=== PATIENT | male | born 1985 | race Caucasian/White ===

== ENCOUNTER 2020-11-04 01:34 | Observation (INO) | payer SELFPAY ==
[2020-11-04] VITALS (7 sets, daily range): BP systolic 120–133; BP diastolic 76–81; PULSE 55–83; RESP 16–18; TEMP 36.4–37.1; O2SAT 94–99; BMI 34.4; BMI 38.9
--- NOTE | 2020-11-04 01:44 | RAD_ITS ---
STUDY: X-RAY CHEST REASON FOR EXAM: Male, 35 years old. chest pain TECHNIQUE: Single AP portable view of the chest. COMPARISON: 04/14/2011. FINDINGS: The lungs are clear and expanded. There is no demonstrated pleural abnormality. Normal size heart. Normal mediastinum and chantell. Normal visualized pulmonary arteries. Normal visualized aortic arch and descending thoracic aorta. Normal visualized thoracic spine. Normal visualized ribs, clavicles, and shoulders. There is no demonstrated abnormality of the visualized soft tissue structures of the upper abdomen. RAD/Chest 1 View (Portable) IMPRESSION: Normal x-ray examination of the chest. Electronically Signed: Sarah Rhodes MD at 2:17 EDT , Service support ,
--- NOTE | 2020-11-04 01:44 | EKG12_ITS ---
Test Reason : ABD PAIN Blood Pressure : / mmHG Vent. Rate : 075 BPM Atrial Rate : 075 BPM P-R Int : 156 ms QRS Dur : 086 ms QT Int : 376 ms P-R-T Axes : 075 -18 053 degrees QTc Int : 419 ms Normal sinus rhythm with sinus arrhythmia Possible Inferior infarct , age undetermined Abnormal ECG Confirmed by REMBERTO SAVAGE, ROSY ([id number]), news copy editor ROMEO HORNE ([id number]) on 11/08/2020 2:09:15 PM Referred By: GORDON Confirmed By:ROSY SR MD
--- NOTE | 2020-11-04 01:46 | ED.DCSUM_ITS ---
History of Present Illness Chief Complaint: Abd Pain Detail of Chief Complaint: Upper quadrant abdominal pain and exertional chest pain Informant: Patient, Significant Other Onset: Weeks Context: Sudden Onset Timing: Intermittent Quality: Abdominal pain and chest tightness Location: Right upper quadrant and midsternal Current Severity: - - Presently not experiencing chest discomfort with respect to the right upper quadrant pain Maximum Severity: Severe - The abdominal pain is worse with greasy or fried food. There is a family history of cholelithiasis. Chest discomfort with running up and down steps Worsened by: [place] food regarding RUQ and exertion with respect to chest tightness Relieved by: Nothing and rest Associated Symptoms: Please read HPI Narrative: Patient is a 35-year-old male who smokes 1.5 packs of cigarettes a day. He has not seen a doctor in many years. There is family history cholelithiasis. He denies known family history of cardiac disease. He has been experiencing right upper quadrant pain that radiates to his back and midsternal chest discomfort that radiates to his back with associated symptoms for 1 to 2 months. Patient presents because of right upper quadrant discomfort. He states he also has fatigue. He does not feel well rested. Person that is with him states he snores loudly. He states he does not feel he has gotten a sounds night of sleep upon awakening. He does report significant weight gain. He reports the right upper quadrant pain is precipitated by greasy or fried meals. He had a turkey sandwich with Doritos at 1999. The right upper quadrant pain is been present for about 2 months. The pain does radiate to his back. He denies primary. He states he has had diarrhea the past 1 to 2 days. He denies blood or mucus in his diarrhea. He denies black or maroon-colored stool. He denies history of peptic ulcers, hiatal hernia or reflux. Patient reports midsternal chest tightness radiates to his back associated with dyspnea and diaphoresis if he goes up and down the steps quickly. Discomfort lasted approximately 20 minutes. The discomfort does go away if he stops activity. He has never had a stress test. His only known risk factor is smo dustin since he has not seen a doctor in years. Prior similar symptoms: No Recent Illness/Hospitalization: No - Past Medical History (1) Past medical history not known due to adoption Status: Acute Past Medical History - Allergies and Home Meds Allergies/Adverse Reactions: Allergies No Known Allergies Allergy (Verified 11/04/20 01:40) Primary Care Physician: NOT,DEFINED [NON-STAFF] - Past Medical History: None Surgical History: no surgical history Lives: Spouse/ Significant Other Smoking Status: Current every day smoker Alcohol: Rare Drugs: None Review of Systems General: Reports: Malaise. Denies: Chills, Fever, Subjective, Sweats Eyes: Denies: Visual changes - bilaterally, Blurred Vision - bilaterally ENT: Denies: Bilateral ear pain, Rhinorrhea, Sore throat Cardiovascular: Reports: Chest pain. Denies: Palpitations, Heart racing Respiratory: Reports: Cough - Smokers, Dyspnea on exertion. Denies: Dyspnea, Sputum, Orthopnea, Paroxysmal nocturnal dyspnea Gastrointestinal: Reports: Abdominal pain, Nausea. Denies: Vomiting, Diarrhea, Hematochezia Genitourinary: Denies: Dysuria, Hematuria, Frequency Musculoskeletal: Reports: Back pain. Denies: Myalgias, Arthralgias, Neck pain, Swelling, Extremity Pain Skin: Denies: Rash, Wounds Neurological: Denies: Weakness, Parasthesia Endocrine: Reports: Polyuria - Also complains of nocturia. Hematologic: Denies: Easy bruising, Easy bleeding Allergy: Denies: Uticaria Physical Exam Vital Signs/Narrative: Vital Signs Temp Pulse Resp BP Pulse Ox 11/04/20 01:35 97.5 F L 83 18 133/76 H 96 Inital Vital Signs reviewed: Yes General: Well nourished, Well developed, Obese, No Acute Distress Head: Normocephalic, Atraumatic Eyes: Perrl, EOMI. Negative for: Pale conjunctiva ENT: Moist mucous membranes, No rhinorrhea Neck: Supple, Nontender, No lymphadenopathy, No JVD Cardiovascular: Regular rate, Regular rhythm, No murmurs, Normal S1, Normal S2 Respiratory: No distress, CTA bilaterally, Chest nontender Abdomen: Soft, Nondistended, No masses, Tender, Hypoactive bowel sounds, Pittman's sign - Cervical Pittman sign.. Negative for: Nontender, Normal bowel sounds, Rebound tenderness, Hepatomegaly, Splenomegaly Rectal: Deferred Back: Nontender, Normal Inspection. Negative for: CVA tenderness Extremities: Nontender, No edema Skin: Normal color, No rash, Diaphoresis, No Trauma. Negative for: Cyanosis, Jaundice Neurological: Alert, Oriented x3, Cranial nerves II-XII grossly intact, Normal Strength, Normal Sensation Psychological: Normal affect, Normal Mood Diagnostic/Tx/Re-eval Chest X-Ray - ED: 1 View, Read by ED Physician, Normal, Heart, Lungs, Mediastinum, Bony Structures, No Acute Disease, - - Single view portable chest x-ray was interpreted by me at 0200. 11/04/20 01:44 Chest 1 View (Portable) [RAD] Stat 11/04/20 01:44 Chest 1 View (Portable) [RAD] Stat Laboratory Results 11/04/20 11/04/20 01:40 01:40 WBC 11.2 H RBC 6.25 H Hgb 18.9 H* Hct 55.1 H MCV 88.2 MCH 30.2 MCHC 34.3 RDW Std Deviation 41.8 RDW Coeff of Abdelrahman 12.9 Plt Count 248 MPV 10.3 Immature Gran % (Auto) 0.400 Neut % (Auto) 53.3 Lymph % (Auto) 34.6 [place] % (Auto) 8.7 Eos % (Auto) 2.4 Baso % (Auto) 0.6 Absolute Neuts (auto) 6.0 Absolute Lymphs (auto) 3.88 Nucleated RBC % 0 Diff Path Review May foll Sodium 135 L Potassium 3.6 Chloride 103 Carbon Dioxide 30.0 Anion Gap 2 L BUN 15 Creatinine 1.32 H Estim Creat Clear Calc 79.11 Est GFR (MDRD) Af Amer 78 Est GFR (MDRD) Non-Af 65 BUN/Creatinine Ratio 11.4 Glucose 82 Calcium 9.1 Total Bilirubin 0.80 Direct Bilirubin 0.20 AST 20 ALT 56 Alkaline Phosphatase 64 Troponin I < 0.015 Total Protein 8.4 H Albumin 4.7 Globulin 3.7 Lipase 130 Patient has polycythemia vera secondary due to smoking. Troponin is normal. Creatinine is elevated 1.32 with a GFR of 65. Will contact hospitalist and cardiology since patient chest discomfort is very suspicious for exertional angina. Based on dynamic criteria cardiac catheterization is warranted. - EKG Initial EKG Interpretation: Sinus Rhythm - Normal sinus rhythm with respiratory variance. Ventricular rate 75. Parables on 56 ms. Cures duration 86 ms. QT duration 376 ms. [place] is normal. There is motion artifact. Multiple attempts were made in this is best tracing. There are no Q-wave in the inferior leads. Prior: No Prior - Medical Decision Making 1. With patient giving history of classic exertional angina cardiac work-up was initiated and he was treated with aspirin. Since he is presently without discomfort nitroglycerin was not ordered. Per josselyn criteria patient has classic angina and has a high likelihood of cardiac disease. Patient was scored 2 points for high suspicion and 1 point for risk factors. He scored no points for age. EKG and troponin are pending. Heart score is 3. With family history cholelithiasis and right upper quadrant pain with fatty/greasy meals hepatic and lipase was ordered. Since patient ate at 2000 and is not febrile and has no findings to suggest Charcot's triad, ascending cholangitis a stat ultrasound was not ordered. This can be done as an inpatient. Suspect patient has undiagnosed obstructive sleep apnea. Work-up as outpatient. Hematology called with a high hemoglobin. This would represent polycythemia vera secondary. - Critical Care Time Critical care time (excluding procedures): Discussing w/Patient &/or Family/Care Coordination Manager, Discussing w/Consultants, Arranging Admission or Transfer - Clear time for history, physical examination and documentation. Total time 24 minutes. ED Disposition - Plan for ED Patient: Disposition: Acute Care Hospital [facility] Diagnosis: Exertional chest pain, Right upper quadrant abdominal pain, Polycythemia vera, acquired, High blood pressure, Elevated serum creatinine Referrals: NOT,DEFINED [NON-STAFF] -
--- NOTE | 2020-11-04 01:46 | ED.RN ---
NO OLD EKGS IN MUSE
[2020-11-04 01:56] LABS: Absolute Lymphocyte Count 3.88 X10^3/uL (0.83-4.51); Basophil# 0.07 X10^3/uL; Basophil% 0.6 % (0-1); Eosinophil# 0.27 X10^3/uL; Eosinophils% 2.4 % (0-5); Hematocrit 55.1 % (40-54); Lymphocyte # 3.88 X10^3/ul (4.0); Lymphocyte % 34.6 % (19-41); Mean Corp Hgb Conc 34.3 g/dL (32-36); Mean Corpuscular Hgb 30.2 pg (27.0-32.0); Mean Corpuscular Volume 88.2 fL (80-94); Mean Platelet Vol. 10.3 fl (6.2-12.0); Monocyte# 0.97 X10^3/uL; Monocyte% 8.7 % (0-10); NRBC Flagged by Analyzer 0 % (0-5); Neutrophil # 5.98 X10^3/uL (2.7-7.7); Neutrophil % 53.3 % (47-70); Platelet Count 248 K/mm3 (150-450); RBC Distribution Width CV 12.9 % (11.6-14.6); RBC Distribution Width SD 41.8 fl (35.1-43.9); Red Blood Count 6.25 M/mm3 (4.6-6.2); White Blood Count 11.2 K/mm3 (4.4-11.0)
[2020-11-04] MEDS: Aspirin 81 MG TAB.CHEW 324 MG PO (02:00)
[2020-11-04 02:06] LABS: Hemoglobin 18.9 g/dL (13.0-16.5)
[2020-11-04 02:07] LABS: Differential Indicated SCAN CRITERIA MET
[2020-11-04 02:11] LABS: AST(SGOT) 20 U/L (15-37); Alanine Aminotransfer ALT/SGPT 56 U/L (16-61); Albumin, Serum 4.7 g/dL (3.2-5.0); Alkaline Phosphatase 64 U/L (45-117); Anion Gap 2 (5-15); BUN 15 mg/dL (7-18); BUN/Creat Ratio 11.4 RATIO (10-20); Calcium,Total 9.1 mg/dL (8.5-10.1); Chloride 103 mmol/L (98-107); Creatinine, Serum 1.32 mg/dL (0.70-1.30); EST Glomerular Filtration Rate 65 mL/min (>60); Est Glom Filt Rate - Afr Amer 78 mL/min (>60); Estimated Creatinine Clearance 79.11 ml/min; Globulin 3.7 g/dL (2.2-4.2); Glucose 82 mg/dL (74-106); Lipase 130 U/L (73-393); Potassium 3.6 mmol/L (3.5-5.1); Protein, Total 8.4 g/dL (6.4-8.2); Sodium Level 135 mmol/L (136-145)
--- NOTE | 2020-11-04 02:53 | HP.PCM_ITS ---
Problem List (1) Dehydration Status: Acute (2) Chest pain Status: Acute (3) Biliary colic Status: Suspected (4) Right upper quadrant abdominal pain Status: Acute History of Present Illness Date of Admission: 11/04/20 Chief Complaint: Right upper quadrant abdominal pain, chest pain. The patient is a 35 year old M with no significant past medical history presented to the emergency room because of right upper quadrant abdominal pain and also complains of chest pain. Patient mentioned that he has been having episodes of right upper quadrant abdominal pain over the last 2 months, intermittent, squeezing type pain, 6/10 in severity, aggravated by movement and greasy food and without relieving factors. He mentioned that this pain has been going on for at least 2 months but he did not seek medical attention. He denied nausea or vomiting. He denied fever or chills. Also, he complained of left- sided chest pain, described as chest discomfort, on and off, mainly exertional, associated with mild shortness of breath and also has been going on for several weeks. What made him come in this morning was mainly in the right upper quadrant abdominal pain. He had no past medical history. No family history of premature CAD. Patient is a smoker, smokes cigarettes and sometimes smoke weed. He denied alcohol drinking. In the emergency department, his vital signs were stable. His routine blood work was remarkable for mild leukocytosis, hemoconcentration with hemoglobin of 18.9 g/dL. Creatinine is 1.32. LFT and lipase were normal. EKG revealed normal sinus rhythm without evidence of acute ischemic changes. Troponin was negative. Chest x-ray showed no acute findings. He is being admitted for right upper quadrant abdominal pain probably due to biliary colic and also admitted for exertional chest pain for evaluation. Past Medical History Allergies No Known Allergies Allergy (Verified 11/04/20 01:40) Home Medications: Ambulatory Orders Medication Instructions Recorded NK 11/04/20 Surgical History: no surgical history Lives: Spouse/ Significant Other Smoking Status: Current every day smoker Tobacco Use: Cigarettes, - Alcohol: Rare Drugs: Marijuana - *Family History Maternal History Items: No pertinent history, - - No family history of premature CAD. Paternal History Items: No pertinent history Review of Systems Constitutional: Denies: Anorexia, Chills, Fever, Weakness Eyes: Denies: Blurred vision, Double vision, Drainage, Redness HEENT: Denies: Difficulty Hearing, Ear Pain, Eye Pain, Nasal Congestion, Sore Throat Cardiovascular: Reports: Chest Pain. Denies: Chest Tightness, Edema, Heaviness, Light Headedness, Orthopnea, Paroxysmal Noc. Dyspnea, Syncope Respiratory: Reports: Shortness of Breath. Denies: Cough, Pleuritic Pain, Sputum production, Wheezing Gastrointestinal: Reports: Abdominal Pain. Denies: Constipation, Diarrhea, Nausea, Vomiting Genitourinary: Denies: Dysuria, Frequency, Hematuria Musculoskeletal: Denies: Arm Pain, Back Pain, Foot Pain Skin: Denies: Dryness, Rash Neurological: Denies: Balance problems, Double vision, Change in Speech, Slurred speech, Confusion, Headaches, Incoordination Psychiatric: Denies: Anxiety, Depression Endocrine: Denies: Change in Body Habitus, Polydipsia, Polyuria VTE Information - Inpt Only VTE Present on Admission: No VTE Mechan Device Prophylaxis: None VTE Pharm Prophylaxis ordered?: No Patient Problems: Active and Suspected Problems Right upper quadrant abdominal pain (Acute) - Physical Exam Vitals/I&O's: Vital Signs Temp Pulse Resp BP Pulse Ox 97.5 F L 83 18 133/76 H 96 11/04/20 01:35 11/04/20 01:35 11/04/20 01:35 11/04/20 01:35 11/04/20 01:35 Oxygen Delivery Method Room Air Weight: 240 lb Body Mass Index (BMI) 34.4 General: Alert, Oriented x3, Cooperative, No apparent distress HEENT: Atraumatic, PERRLA, EOMI, Normocephalic Oral: Moist Mucosa, No Gingival or Mucosal Lesions/ Ulcerations Neck: Supple, No JVD, Negative Carotid Bruits, Trachea Midline, Thyroid Normal Size and Texture Lungs: Clear to auscultation, Normal air movement, No rhonchi, No wheeze, No rales Cardiovascular: Regular rate, Regular Rhythm, Normal S1, Normal S2, PMI Normal Abdomen: Bowel Sounds Present, Soft, Non Tender, Non-Distended, No Hepato- splenomegaly, - - Negative Pittman sign. Extremities: No clubbing, No cyanosis, No edema Skin: No rashes, No breakdown Lymphatic: No Cervical, Supraclavicular, or Inguinal Adenopathy Neurological: Cranial nerves II-XII grossly intact, Motor Exam 5/5 strength throughout Psych/Mental Status: Normal Affect, Appropriate, Alert and oriented to time, place, person, mood and affect Laboratory Results 11/04/20 01:40: WBC 11.2 H, RBC 6.25 H, Hgb 18.9 H*, Hct 55.1 H, MCV 88.2, MCH 30.2, MCHC 34.3, RDW Std Deviation 41.8, RDW Coeff of Abdelrahman 12.9, Plt Count 248, MPV 10.3, Immature Gran % (Auto) 0.400, Neut % (Auto) 53.3, Lymph % (Auto) 34.6, [place] % (Auto) 8.7, Eos % (Auto) 2.4, Baso % (Auto) 0.6, Absolute Neuts (auto) 6.0, Absolute Lymphs (auto) 3.88, Nucleated RBC % 0, Diff Path Review November11/04/20 01:40: Sodium 135 L, Potassium 3.6, Chloride 103, Carbon Dioxide 30.0, Anion Gap 2 L, BUN 15, Creatinine 1.32 H, Estim Creat Clear Calc 79.11, Est GFR (MDRD) Af Amer 78, Est GFR (MDRD) Non-Af 65, BUN/Creatinine Ratio 11.4, Glucose 82, Calcium 9.1, Total Bilirubin 0.80, Direct Bilirubin 0.20, AST 20, ALT 56, Alkaline Phosphatase 64, Troponin I < 0.015, Total Protein 8.4 H, Albumin 4.7, Globulin 3.7, Lipase 130 Clinical Impression(s) from Imaging Studies Chest X-Ray 11/04/20 01:44 IMPRESSION: Normal x-ray examination of the chest. Electronically Signed: Sarah Rhodes MD at 2:17 EDT , Service support , Assessment/Plan All Active Problems Dehydration (Acute) Chest pain (Acute) Right upper quadrant abdominal pain (Acute) This is a 55 years old male patient presented to the emergency room mainly because of right upper quadrant abdominal pain, also complains of exertional chest pain and he is being admitted for evaluation and treatment. #1 right upper quadrant abdominal pain/probable biliary colic: This has been going on for couple of months. LFT and lipase were normal. Negative Pittman sign. Vital signs are stable. Plan: Admit to PCU, cardiac monitoring, IV fluids, IV morphine as needed, IV Zofran as needed, repeat CBC and CMP this morning around 11 AM, ultrasound gallbladder, Tylenol as needed. #2 exertional chest pain: This is a different complaint according to the patient. He has noticed factors for CAD. No family history of premature CAD. EKG revealed no acute segment changes. Troponin was negative. Chest x-ray showed no acute findings. Plan: Cardiac monitoring, serial cardiac enzymes, nuclear stress test this morning if cardiac enzymes are negative. #3 dehydration/hemoconcentration: As indicated by hemoglobin of 18.9 g/dL, creatinine 1.32. Plan: IV fluids, input output chart, repeat CBC and BMP later this morning. #4 DVT prophylaxis: Low risk patient, no prophylaxis indicated. This note was generated with [employer] dictation software. It may contain incorrect words, spelling, and punctuation that were not noted in checking the note before signing. OBSV E&M: [id number] Initial observation care L2
--- NOTE | 2020-11-04 03:36 | US_ITS ---
STUDY: ABDOMINAL ULTRASOUND - RIGHT UPPER QUADRANT REASON FOR VISIT: Male, 35 years old Right upper quadrant abdominal pain TECHNIQUE: Ultrasound evaluation of the right upper quadrant was performed with real-time and static armstrong-scale imaging. TECHNICAL QUALITY: Adequate. COMPARISON: None. FINDINGS: Liver: The liver measures 18.1 cm. Increased echogenicity of the liver parenchyma due to fatty infiltration with areas of focal fatty sparing in the right hepatic lobe. The bile ducts are within normal limits. There is hepatic color flow. The direction of portal flow is hepatopetal. There is no demonstrated mass lesion. Gallbladder: Normal distended gallbladder. The gallbladder wall measures 2 mm. There is a negative sonographic Pittman''s sign. There is no pericholecystic fluid. There are at least 2 small gallstones. Common Bile Duct (C.B.D.): The common bile duct measures 3 mm. Pancreas: Obscured by overlying bowel gas. Right Kidney: Normal size of the right kidney. The right kidney measures 11.4 x 5.6 x 5.3 cm. Normal renal cortex. The right cortex measures 1. cm. There is no demonstrated renal mass or cyst. There is no right hydronephrosis. US/Gallbladder IMPRESSION: 1. At least 2 small gallstones but negative sonographic Pittman''s sign and no pericholecystic edema. 2. Hepatic steatosis with focal fatty sparing in the right hepatic lobe. 3. Limited study due to overlying bowel gas obscuring the pancreas. Electronically Signed: London Schilling MD at 9:52 EDT , Service support ,
--- NOTE | 2020-11-04 03:55 | EKG12_ITS ---
Test Reason : CP ADMIT Blood Pressure : / mmHG Vent. Rate : 067 BPM Atrial Rate : 067 BPM P-R Int : 166 ms QRS Dur : 098 ms QT Int : 408 ms P-R-T Axes : 054 -34 037 degrees QTc Int : 431 ms Normal sinus rhythm with sinus arrhythmia Left axis deviation Poor R wave progression Abnormal ECG Confirmed by SAMUEL SAVAGE, BRITTNEE ([id number]), editorial clerk ANANTH GONZALEZ ([id number]) on 11/11/2020 11:23:03 AM Referred By: DR ARTHUR Confirmed By:BRITTNEE BAKER MD
[2020-11-04] MEDS: 0.9% Normal Saline 1,000 ML 100 ML IV (04:14)
--- NOTE | 2020-11-04 08:21 | CON.PCM_ITS ---
Reason for Consult Date of Consultation: 11/04/20 Reason for Consultation: Chest discomfort History of Present Illness: The patient is a 35 year old M with no significant cardiac history who presented to the emergency room because of intermittent right upper quadrant pain which has been going on for the last 2 months. He describes this as intermittent squeezing in nature and appears to be aggravated by movement as well as greasy factors. Interestingly he is also complained of chest discomfort and shortness of breath. He also says that he gets short of breath as well as chest discomfort with exertion going up stairs and this has been also been going on for the last several weeks. There does not appear to be any radiation of this. He also has a history of indigestion. He presented to the emergency room yesterday EKG was noted to be normal troponin was negative and his LFTs and lipase were normal. He was admitted for evaluation of his right upper quadrant pain. Cardiology was called for evaluation of his chest discomfort. This morning he still has mild epigastric discomfort. [] Past Medical History Allergies/Adverse Reactions: Allergies No Known Allergies Allergy (Verified 11/04/20 01:40) Home Medications: Ambulatory Orders Medication Instructions Recorded NK 11/04/20 Past Medical History (Chronic Problems): Chronic Problems High blood pressure (Chronic) Surgical History: no surgical history - *Family History Maternal History Items: No pertinent history, - - No family history of premature CAD. Paternal History Items: No pertinent history Lives: Spouse/ Significant Other Smoking Status: Current every day smoker Tobacco Use: Cigarettes Alcohol: Rare Drugs: None, Marijuana Review of Systems - Review of Systems General: Denies: Fever, Night Sweats, Fatigue HEENT: Denies: Vision Change Cardiovascular: Reports: Chest Discomfort, Chest Discomfort with Exertion, Shortness of Breath, Shortness of Breath with Exertion. Denies: Orthopnea, PND, Peripheral Edema, Palpitations, Lightheadedness, Dizziness, Near Syncope, Syncope Respiratory: Denies: Cough, Sputum Production, Hemoptysis Gastrointestinal: Denies: Hematemesis, Hematochezia, Melena Genitourinary: Denies: Dysuria, Hematuria Skin: Denies: Rash Psychiatric: Denies: Anxiety Endocrine: Denies: Heat Intolerance Objective: Vital Signs Temp Pulse Resp BP Pulse Ox 97.5 F L 70 16 121/77 H 97 11/04/20 07:38 11/04/20 07:38 11/04/20 07:38 11/04/20 07:38 11/04/20 07:38 Oxygen Delivery Method Room Air Weight: 271 lb 13.279 oz Body Mass Index (BMI) 38.9 Intake and Output for Last 24 Hours 11/02/20 11/03/20 11/04/20 23:59 23:59 23:59 Intake Total 340 / 340 Balance 340 / 340 11/04/20 01:40: WBC 11.2 H, RBC 6.25 H, Hgb 18.9 H*, Hct 55.1 H, MCV 88.2, MCH 30.2, MCHC 34.3, Plt Count 248, MPV 10.3, Immature Gran % (Auto) 0.400, Neut % (Auto) 53.3, Lymph % (Auto) 34.6, [place] % (Auto) 8.7, Eos % (Auto) 2.4, Baso % (Auto) 0.6, Absolute Neuts (auto) 6.0, Nucleated RBC % 0 11/04/20 01:40: Sodium 135 L, Potassium 3.6, Chloride 103, Carbon Dioxide 30.0, Anion Gap 2 L, BUN 15, Creatinine 1.32 H, Est GFR (MDRD) Af Amer 78, Est GFR (MDRD) Non-Af 65, BUN/Creatinine Ratio 11.4, Glucose 82, Calcium 9.1, Total Bilirubin 0.80, Direct Bilirubin 0.20, Troponin I < 0.015 11/04/20 04:50: Troponin I < 0.015 11/04/20 07:10: Troponin I < 0.015 Rhythm: EKG: Normal sinus rhythm with no acute changes ECHO: Stress Test: Cardiac Cath: PCI: CT Surgery: Holter monitor: EPS: PPM: CXR: Chest CT Scan: Assessment/Plan 1. Chest discomfort * Patient presents with chest discomfort without any EKG findings. He does have some atypical qualities to the above however. His cardiac enzymes thus far are negative. I would recommend at this time that we attempt an exercise myocardial perfusion stress test. If the above is abnormal then I would recommend an angiogram before he has any other evaluation. If however it is normal then we may be able to proceed with a gallbladder evaluation. I have discussed the above with him he understands and agrees to proceed. * Would also recommend an echocardiogram to assess his ventricular function. * * * Addendum: Stress test report performed this morning demonstrates no evidence of ischemia. At this time would defer any further cardiac work-up. * Thank you for allowing me to participate in the care of your patient. Please don't hesitate to call if any issues arise.
--- NOTE | 2020-11-04 09:56 | STRESSREP ---
Stress Test Report Exercise myocardial perfusion stress test. 35-year-old male with a history of chest pain. Stress protocol: Resting EKG demonstrates normal sinus rhythm with a rate of 62 bpm normal intervals are noted resting blood pressure is 104/62 mmHg. The patient exercised according to the regular Sebastian protocol for a total duration of 6 minutes. The maximum heart rate was 160 bpm which was 87% of maximum predicted heart rate the maximum workload was 7 metabolic equivalents. At rest there were no ST or T wave changes noted to suggest ischemia and at peak exercise upsloping ST changes were noted which did not meet the criteria for ischemia. The test was terminated due to dyspnea. No chest pain was noted. The peak blood pressure was 142/74 mmHg. Myocardial perfusion protocol. 15.0 mCi of technetium 99m sestamibi was injected at rest. The patient exercised according to the regular Sebastian protocol. At peak exercise 44.5 mCi of technetium 99m sestamibi was injected stress images were obtained stress and rest images were reconstructed and compared in the short axis vertical long and horizontal long axis. Gated images were also obtained Perfusion SPECT analysis: Review of the stress images demonstrate normal uptake of tracer noted in all areas of the myocardium. The resting images similarly demonstrate normal uptake of tracer noted in all areas of the myocardium. No reversibility is noted to suggest ischemia no previous infarct is noted. Gated SPECT analysis: The gated ejection fraction is 70%. Conclusion: Normal exercise myocardial perfusion stress test at a moderate workload. No clinical angina noted. No arrhythmias noted.
[2020-11-04 11:26] LABS: Absolute Lymphocyte Count 3.82 X10^3/uL (0.83-4.51); Absolute Neutrophil Count 4.7 X10^3/uL (2.0-7.7); Basophil# 0.07 X10^3/uL; Basophil% 0.7 % (0-1); Eosinophils% 3.1 % (0-5); Hemoglobin 17.6 g/dL (13.0-16.5); Lymphocyte # 3.82 X10^3/ul (4.0); Lymphocyte % 39.5 % (19-41); Mean Corp Hgb Conc 34.5 g/dL (32-36); Mean Platelet Vol. 10.6 fl (6.2-12.0); Monocyte# 0.77 X10^3/uL; NRBC Flagged by Analyzer 0 % (0-5); Neutrophil # 4.67 X10^3/uL (2.7-7.7); Neutrophil % 48.4 % (47-70); Platelet Count 211 K/mm3 (150-450); RBC Distribution Width CV 12.9 % (11.6-14.6); RBC Distribution Width SD 41.1 fl (35.1-43.9); Red Blood Count 5.86 M/mm3 (4.6-6.2); White Blood Count 9.7 K/mm3 (4.4-11.0)
--- NOTE | 2020-11-04 11:35 | PCM.DC ---
- Discharge Diagnoses Current Active Problems: Current Active and Chronic Problems Chest pain (Acute) Right upper quadrant abdominal pain (Acute) You will use the following diet at home:: Calorie/Carbohydrate Controlled (specify 1200, 1400, etc), Cardiac Discharge Activity: Return to Normal Activity Call your doctor if you observe: Shortness of breath, Dizziness, Fainting spells, Chest pain Additional Instructions: Recommend outpatient sleep study to assess for underlying sleep apnea which can be arranged by your primary care provider. Recommend follow up with Dr. Maradiaga, general surgery for ongoing abdominal pain. Your gallbladder ultrasound showed 2 small gallstones however no acute gallbladder concerns. You were started on Protonix for acid reflux and possible gastritis (abdominal irritation) to see if this improves your symptoms. Follow-up in [address] Maradiaga to discuss if further testing is necessary. You may also follow-up with physician who performed prior colonoscopy if you choose. Your stress test was normal, therefore cardiac cause of chest pain has been ruled out. Allergies/Adverse Reactions: Allergies No Known Allergies Allergy (Verified 11/04/20 01:40) Medications to take at Discharge Pantoprazole Sodium [Protonix] 40 mg PO BID #60 tab 11/04/20 The following prescriptions were given: Pantoprazole Sodium [Protonix] 40 mg PO BID #60 tab Transmission Status: Received by [facility]/pharmacy #[id number] Primary Care Physician: NOT,DEFINED [NON-STAFF] - Please follow up with your Primary Care Physician in: 1 Week Test Results: Test results from this visit will be discussed in further detail at your follow-up appointment, if applicable. Please Follow Up With: Robb Maradiaga MD When: 2 Weeks Proposed Discharge Date: 11/04/20
[2020-11-04 11:38] LABS: ALB/GLOB Ratio 1.3 RATIO (0.9-2.4); AST(SGOT) 19 U/L (15-37); Alanine Aminotransfer ALT/SGPT 50 U/L (16-61); Albumin, Serum 4.2 g/dL (3.2-5.0); Alkaline Phosphatase 57 U/L (45-117); Anion Gap 4 (5-15); BUN 14 mg/dL (7-18); BUN/Creat Ratio 12.1 RATIO (10-20); Calcium,Total 9.1 mg/dL (8.5-10.1); Chloride 106 mmol/L (98-107); Creatinine, Serum 1.16 mg/dL (0.70-1.30); EST Glomerular Filtration Rate 75 mL/min (>60); Est Glom Filt Rate - Afr Amer 91 mL/min (>60); Estimated Creatinine Clearance 90.03 ml/min; Globulin 3.2 g/dL (2.2-4.2); Glucose 86 mg/dL (74-106); Potassium 3.8 mmol/L (3.5-5.1); Protein, Total 7.4 g/dL (6.4-8.2); Sodium Level 137 mmol/L (136-145)
--- NOTE | 2020-11-04 12:10 | PCM.DC.SUM ---
<Kath Steele LOKIE ENGINEER - Last Filed: 11/04/20 12:25> Discharge Date and Diagnosis - Problem List Patient Problems: Active and Suspected Problems Exertional chest pain (Acute) Polycythemia vera, acquired (Acute) Elevated serum creatinine (Acute) Dehydration (Acute) Chest pain (Acute) Biliary colic (Suspected) Right upper quadrant abdominal pain (Acute) Date of Admission: 11/04/20 Date of Discharge: 11/04/20 - Primary Discharge Diagnosis Acute Problems: Active Problems 1. Chest pain, ACS ruled out 2. Right upper quadrant pain, probable biliary colic 3. Mild dehydration, hemoconcentration 4. GERD 5. Suspected CARA Suspected Problems: Suspected Problems Biliary colic (Suspected) - Secondary Discharge Diagnosis Chronic Problems: Chronic Problems High blood pressure (Chronic) Hospital Course and Treatment Imaging Results: Diagnostic Data Chest X-Ray 11/04/20 01:44 IMPRESSION: Normal x-ray examination of the chest. Electronically Signed: Sarah Rhodes MD at 2:17 EDT , Service support , Gallbladder Ultrasound 11/04/20 03:36 IMPRESSION: 1. At least 2 small gallstones but negative sonographic Pittman''s sign and no pericholecystic edema. 2. Hepatic steatosis with focal fatty sparing in the right hepatic lobe. 3. Limited study due to overlying bowel gas obscuring the pancreas. Electronically Signed: London Schilling MD at 9:52 EDT , Service support , Dr. Daugherty- Cardiology Operations: None Procedures: Stress test Summary of Care Provided: The patient is a 35 year old M admitted for 821 due to right upper quadrant abdominal pain and chest pain. 1. Chest pain, ACS ruled out-troponin negative. EKG without ST-T changes. Patient underwent nuclear stress test which was negative for ischemia. Gated ejection fraction 70%. No clinical angina noted. Suspect symptoms related to #2. Follow-up with PCP in 1 week. 2. Right upper quadrant pain, probable biliary colic-gallbladder ultrasound shows 2 small gallstones, negative Pittman sign, no pericholecystic edema. Common bile duct 3 mm. LFTs and lipase normal. Recommend outpatient follow-up with general surgery for ongoing evaluation. Patient had colonoscopy in the past however is unable to state who performed this, he may choose to follow-up with previously established physician. Initiated on PPI for GERD/gastritis symptoms pending further outpatient evaluation. 3. Mild dehydration, hemoconcentration improved with IV fluids.-Creatinine now normal. Hemoglobin 17.6 from 18.9. 4. GERD-initiated on PPI. Outpatient follow-up as noted above. 5. Probable CARA-patient states he has been recommended to undergo sleep study in the past. Discussed obtaining PCP and outpatient sleep study test. Patient seen and examined prior to discharge. Physical assessment as noted below. Patient is stable for discharge with follow up recommendations as noted above. This patient was seen by MEAGAN Medina under the supervision of Dr. Diehl. Patient Problems: Active and Suspected Problems Exertional chest pain (Acute) Polycythemia vera, acquired (Acute) Elevated serum creatinine (Acute) Dehydration (Acute) Chest pain (Acute) Biliary colic (Suspected) Right upper quadrant abdominal pain (Acute) - Physical Exam Vitals/I&O's: Vital Signs Temp Pulse Resp BP Pulse Ox 97.5 F L 70 16 121/77 H 97 11/04/20 07:38 11/04/20 07:38 11/04/20 07:38 11/04/20 07:38 11/04/20 07:38 Oxygen Delivery Method Room Air Weight: 271 lb 13.279 oz Body Mass Index (BMI) 38.9 Intake and Output for Last 24 Hours 11/02/20 11/03/20 11/04/20 23:59 23:59 23:59 Intake Total 340 / 340 Balance 340 / 340 General: Alert, Oriented x3, Cooperative HEENT: Atraumatic, PERRLA, EOMI, Normocephalic Neck: Supple, No JVD, Negative Carotid Bruits Lungs: Clear to auscultation, Normal air movement Cardiovascular: Regular rate, No murmurs Abdomen: Bowel Sounds Present, Soft, Obese, - - Mild nonspecific tenderness Extremities: No edema, Capillary Refill Less than 3 Seconds Skin: No rashes, No breakdown Musculoskeletal: No Tenderness to Palpation of Joints or Extremities Neurological: Cranial nerves II-XII grossly intact, Neuro grossly intact Psych/Mental Status: Normal Affect, Appropriate Laboratory Results 11/04/20 01:40: WBC 11.2 H, RBC 6.25 H, Hgb 18.9 H*, Hct 55.1 H, MCV 88.2, MCH 30.2, MCHC 34.3, RDW Std Deviation 41.8, RDW Coeff of Abdelrahman 12.9, Plt Count 248, MPV 10.3, Immature Gran % (Auto) 0.400, Neut % (Auto) 53.3, Lymph % (Auto) 34.6, Prowers % (Auto) 8.7, Eos % (Auto) 2.4, Baso % (Auto) 0.6, Absolute Neuts (auto) 6.0, Absolute Lymphs (auto) 3.88, Nucleated RBC % 0, Diff Path Review November11/04/20 01:40: Sodium 135 L, Potassium 3.6, Chloride 103, Carbon Dioxide 30.0, Anion Gap 2 L, BUN 15, Creatinine 1.32 H, Estim Creat Clear Calc 79.11, Est GFR (MDRD) Af Amer 78, Est GFR (MDRD) Non-Af 65, BUN/Creatinine Ratio 11.4, Glucose 82, Calcium 9.1, Total Bilirubin 0.80, Direct Bilirubin 0.20, AST 20, ALT 56, Alkaline Phosphatase 64, Troponin I < 0.015, Total Protein 8.4 H, Albumin 4.7, Globulin 3.7, Lipase 130 11/04/20 04:50: Troponin I < 0.015 11/04/20 07:10: Troponin I < 0.015 11/04/20 11:00: WBC 9.7, RBC 5.86, Hgb 17.6 H, Hct 51.0, MCV 87.0, MCH 30.0, MCHC 34.5, RDW Std Deviation 41.1, RDW Coeff of Abdelrahman 12.9, Plt Count 211, MPV 10.6, Immature Gran % (Auto) 0.300, Neut % (Auto) 48.4, Lymph % (Auto) 39.5, Prowers % (Auto) 8.0, Eos % (Auto) 3.1, Baso % (Auto) 0.7, Absolute Neuts (auto) 4.7, Absolute Lymphs (auto) 3.82, Nucleated RBC % 0 11/04/20 11:00: Sodium 137, Potassium 3.8, Chloride 106, Carbon Dioxide 27.0, Anion Gap 4 L, BUN 14, Creatinine 1.16, Estim Creat Clear Calc 90.03, Est GFR (MDRD) Af Amer 91, Est GFR (MDRD) Non-Af 75, BUN/Creatinine Ratio 12.1, Glucose 86, Calcium 9.1, Total Bilirubin 0.80, AST 19, ALT 50, Alkaline Phosphatase 57, Total Protein 7.4, Albumin 4.2, Globulin 3.2, Albumin/Globulin Ratio 1.3 Current Medications Acetaminophen (Acetaminophen 325 Mg Tablet) 650 mg PO Q6H PRN PRN PRN Reason: Pain Score 1-10/Temp > 100.7 F Sodium Chloride () 1,000 mls @ 100 mls/hr IV .Q10H JARET Stop: 11/04/20 23:35 Last Infusion: 11/04/20 10:00 Dose: 100 mls/hr Documented by: Morphine Sulfate (Morphine 2 Mg/Ml Syringe) 2 mg IV Q4H PRN PRN PRN Reason: Pain Score 6-10 Ondansetron HCl (Ondansetron 4 Mg/2 Ml Vial) 4 mg IV Q8H PRN PRN PRN Reason: NAUSEA/VOMITING Sodium Chloride (0.9% Saline Lock 10 Ml Syringe) 10 - 40 ml IV UD PRN PRN Reason: SALINE FLUSH Discharge Diet: 1800 Calorie Control Diet Discharge Activity: Return to Normal Activity Call your doctor if you observe: Shortness of breath, Dizziness, Fainting spells, Chest pain Home Medications: Medications to take at Discharge Pantoprazole Sodium [Protonix] 40 mg PO BID #60 tab 11/04/20 Following Prescriptions Were Given to Patient: Pantoprazole Sodium [Protonix] 40 mg PO BID #60 tab Transmission Status: Received by [facility]/pharmacy #[id number] Primary Care Physician: NOT,DEFINED [NON-STAFF] - Please follow up with your Primary Care Physician in: 1 Week Please Follow Up With: Robb Maradiaga MD When: 2 Weeks Disposition: Home Minutes spent on discharge:: 35 Patient Condition:: Stable Medical Necessity - Tobacco Use Smoking Status: Current every day smoker Tobacco Use: Cigarettes Meaningful Use Info Meaningful Use Diagnoses (Choose all that apply): None applicable <Kendell Diehl - Last Filed: 11/04/20 15:49> Discharge Date and Diagnosis - Primary Discharge Diagnosis Acute Problems: Active Problems Exertional chest pain (Acute) Polycythemia vera, acquired (Acute) Elevated serum creatinine (Acute) Dehydration (Acute) Chest pain (Acute) Right upper quadrant abdominal pain (Acute) Suspected Problems: Suspected Problems Biliary colic (Suspected) - Secondary Discharge Diagnosis Chronic Problems: Chronic Problems High blood pressure (Chronic) Hospital Course and Treatment Summary of Care Provided: This patient was seen in conjunction with Kath DECKER. I have independently interviewed and examined the patient and reviewed pertinent history, examination findings, laboratory and plan of management. I have reviewed the note and agree with the documented findings with the few additional points. In brief, patient is 35 gentleman admitted with right upper quadrant abdominal pain/epigastric pain and chest pain. Patient was admitted in PCU. Acute coronary syndrome ruled out. Furthermore, patient had myocardial nuclear perfusion test which was negative for ischemia. Patient had right upper quadrant sonogram done. Right upper quadrant sonogram reports 2 small stones but negative sonographic Pittman sign and no pericholecystic edema. It seems asymptomatic gallstone advised to follow-up with surgeon. I think he follows Dr. Delacruz as seems from his description. Continue PPI. Patient might have gastritis/dyspepsia/GERD. Discharge medication reconciliation done. Discharge follow-up instructions completed. Discharge process discussed with the patient and all questions were answered to patient's satisfaction. Total time spent, exact 35 minutes on discharge meds reconciliation, examination, coordination of care with nurses and ancillary staff, review of imaging and blood test and discussion with the patient on follow-up instructions I have discussed my assessment with Kath DECKER and orders have been reviewed. Clinical Impression(s) from Imaging Studies Chest X-Ray 11/04/20 01:44 IMPRESSION: Normal x-ray examination of the chest. Electronically Signed: Sarah Rhodes MD at 2:17 EDT , Service support , Gallbladder Ultrasound 11/04/20 03:36 IMPRESSION: 1. At least 2 small gallstones but negative sonographic Pittman''s sign and no pericholecystic edema. 2. Hepatic steatosis with focal fatty sparing in the right hepatic lobe. 3. Limited study due to overlying bowel gas obscuring the pancreas. Electronically Signed: London Schilling MD at 9:52 EDT , Service support , Objective: Patient has history of chronic acid reflux/gastritis. He had EGD about 1 and half years ago probably by Dr. Delacruz. Details not available Physical exam General: Alert, Oriented x3, Cooperative HEENT: Atraumatic, PERRLA, EOMI, Normocephalic Oral: No Gingival or Mucosal Lesions/ Ulcerations Neck: Supple, No JVD, Negative Carotid Bruits Lungs: Air entry equal in bilateral lung bases. No crepitation/rhonchi Cardiovascular: Regular rate, Regular Rhythm, Normal S1, Normal S2, No murmurs Abdomen: Bowel Sounds Present, Soft, Non Tender, Non-Distended. No gallbladder palpable. : No renal angle tenderness. No suprapubic tenderness. Extremities: No edema, Capillary Refill Less than 3 Seconds Skin: No rashes, No breakdown Musculoskeletal: No Tenderness to Palpation of Joints or Extremities Neurological: Cranial nerves II-XII grossly intact, Deep Tendon Reflexes 2+/4 and Symmetrical, Neuro grossly intact Psych/Mental Status: Normal Affect, Appropriate. - Physical Exam Vitals/I&O's: Vital Signs Temp Pulse Resp BP Pulse Ox 97.5 F L 70 16 121/77 H 97 11/04/20 07:38 11/04/20 07:38 11/04/20 07:38 11/04/20 07:38 11/04/20 07:38 Oxygen Delivery Method Room Air Weight: 271 lb 13.279 oz Body Mass Index (BMI) 38.9 Intake and Output for Last 24 Hours 11/02/20 11/03/20 11/04/20 23:59 23:59 23:59 Intake Total 340 / 340 Balance 340 / 340 Laboratory Results 11/04/20 01:40: WBC 11.2 H, RBC 6.25 H, Hgb 18.9 H*, Hct 55.1 H, MCV 88.2, MCH 30.2, MCHC 34.3, RDW Std Deviation 41.8, RDW Coeff of Abdelrahman 12.9, Plt Count 248, MPV 10.3, Immature Gran % (Auto) 0.400, Neut % (Auto) 53.3, Lymph % (Auto) 34.6, Prowers % (Auto) 8.7, Eos % (Auto) 2.4, Baso % (Auto) 0.6, Absolute Neuts (auto) 6.0, Absolute Lymphs (auto) 3.88, Nucleated RBC % 0, Diff Path Review Reviewed 11/04/20 01:40: Sodium 135 L, Potassium 3.6, Chloride 103, Carbon Dioxide 30.0, Anion Gap 2 L, BUN 15, Creatinine 1.32 H, Estim Creat Clear Calc 79.11, Est GFR (MDRD) Af Amer 78, Est GFR (MDRD) Non-Af 65, BUN/Creatinine Ratio 11.4, Glucose 82, Calcium 9.1, Total Bilirubin 0.80, Direct Bilirubin 0.20, AST 20, ALT 56, Alkaline Phosphatase 64, Troponin I < 0.015, Total Protein 8.4 H, Albumin 4.7, Globulin 3.7, Lipase 130 11/04/20 04:50: Troponin I < 0.015 11/04/20 07:10: Troponin I < 0.015 11/04/20 11:00: WBC 9.7, RBC 5.86, Hgb 17.6 H, Hct 51.0, MCV 87.0, MCH 30.0, MCHC 34.5, RDW Std Deviation 41.1, RDW Coeff of Abdelrahman 12.9, Plt Count 211, MPV 10.6, Immature Gran % (Auto) 0.300, Neut % (Auto) 48.4, Lymph % (Auto) 39.5, Prowers % (Auto) 8.0, Eos % (Auto) 3.1, Baso % (Auto) 0.7, Absolute Neuts (auto) 4.7, Absolute Lymphs (auto) 3.82, Nucleated RBC % 0 11/04/20 11:00: Sodium 137, Potassium 3.8, Chloride 106, Carbon Dioxide 27.0, Anion Gap 4 L, BUN 14, Creatinine 1.16, Estim Creat Clear Calc 90.03, Est GFR (MDRD) Af Amer 91, Est GFR (MDRD) Non-Af 75, BUN/Creatinine Ratio 12.1, Glucose 86, Calcium 9.1, Total Bilirubin 0.80, AST 19, ALT 50, Alkaline Phosphatase 57, Total Protein 7.4, Albumin 4.2, Globulin 3.2, Albumin/Globulin Ratio 1.3 OBSV E&M: [id number] Observation care discharge
[2020-11-04 14:23] LABS: Pathologist Review Reviewed
== END 2020-11-04 11:35 | disposition home or self-care (01) ==
LOC: ED 02:10 → PCU 03:47
PROVIDERS: Admitting Provider Hospitalist; Emergency Provider Emergency Medicine; Visit Provider Internal Medicine
DX: R07.89 Other chest pain (principal); R10.11 Right upper quadrant pain; K21.9 Gastro-esophageal reflux disease without esophagitis; E86.0 Dehydration; F17.210 Nicotine dependence, cigarettes, uncomplicated; R06.02 Shortness of breath; R03.0 Elevated blood-pressure reading, without diagnosis of hypertension; D45 Polycythemia vera; R79.89 Other specified abnormal findings of blood chemistry
CPT/HCPCS: 36415; 71045; 76705; 78452; 80048; 80053; 80076; 83690; 84484; 85025; 93005; 93017; 96360; 96361; 99218; 99285; A9500; J7030; A4216; G0378

== ENCOUNTER 2021-07-24 21:38 | Emergency (ER) | payer SELFPAY ==
[2021-07-24 21:39] VITALS: BP 109/85; PULSE 82; RESP 18; TEMP 36.6; O2SAT 92; BMI 34.4
--- NOTE | 2021-07-24 21:57 | EKG12_ITS ---
Test Reason : DIZZY Blood Pressure : / mmHG Vent. Rate : 077 BPM Atrial Rate : 077 BPM P-R Int : 154 ms QRS Dur : 086 ms QT Int : 366 ms P-R-T Axes : 051 -31 031 degrees QTc Int : 414 ms Normal sinus rhythm with sinus arrhythmia Left axis deviation Low voltage QRS Inferior infarct , age undetermined Abnormal ECG Confirmed by REMBERTO SAVAGE, ROSY ([id number]), editor city ANANTH GONZALEZ ([id number]) on 07/26/2021 9:57:43 AM Referred By: YEISON Confirmed By:ROSY SR MD
--- NOTE | 2021-07-24 21:58 | EDS_ITS ---
HPI History of Present Illness Chief Complaint: Dizziness Narrative Narrative: Patient presents with lightheadedness that began this morning. He states yesterday everything was fine. He denies any significant past medical history. No chest pain, no nausea or vomiting. He states he has been eating and drinking well. He denies any diarrhea. He states it is worse when he stands. He feels off balance and as if he is going to pass out. He denies any headache. No other symptoms, except perhaps mild shortness of breath, but he is a smoker. PFSH [facility], [facility] Medical History Smoker Home Medications pantoprazole 40 mg PO BID #60 tab 11/04/20 [Rx Last Taken Unknown] Allergy/AdvReac Type Severity Reaction Status Date / Time No Known Allergies Allergy Verified 07/24/21 21:40 Social History Smoking Status: Current every day smoker tobacco type: cigarettes ROS ROS ED ROS Narrative Constitutional: No fever, no chills. HEENT: No sore throat. No neck pain. No loss of vision. No rhinorrhea. Cardiovascular: No chest pain. No palpitations. No pedal edema. Respiratory: No cough, mild shortness of breath. Abdominal: No abdominal pain. No nausea. No vomiting. Genitourinary: No dysuria. No hematuria. Musculoskeletal: No myalgias. No arthralgias. Neurologic: No headaches. No dizziness or vertiginous symptoms. Positive lightheadedness. Skin: No rash. No change in color. Psychiatric: No depression. No anxiety. EXAM Physical Exam Narrative Exam Narrative: Afebrile. Vital signs noted. HEENT: Normocephalic. Atraumatic. PERRL, EOMI. Neck soft and supple. No point tenderness or step off. Cardiovascular: Regular rate and rhythm. No murmurs, rubs, or gallops appreciated. Respiratory: No tachypnea. Lungs clear to auscultation bilaterally. Gastrointestinal: Abdomen soft, nontender, with normoactive bowel sounds. No r ebound or guarding. Neurological: Awake. Alert. Nonfocal, nonlateralizing. Skin: No rash. Normal color. No pallor. Musculoskeletal: No pedal edema. Full range of motion extremities. Const Vital Signs: 07/24/21 21:39 07/24/21 21:44 07/24/21 22:33 Temperature 97.9 F Temperature Source Temporal Pulse Rate 82 Pulse Rate [Lying] 65 Pulse Rate [Sitting] 73 Pulse Rate [Standing] 77 Respiratory Rate 18 Respiratory Effort Normal Respiratory Pattern Normal Blood Pressure 109/85 H Blood Pressure [Lying] 116/66 Blood Pressure [Sitting] 119/81 H Blood Pressure [Standing] 135/89 H Blood Pressure Mean 93 Blood Pressure Mean [Lying] 82 Blood Pressure Mean [Sitting] 93 Blood Pressure Mean [Standing] 104 Pulse Ox 92 Oxygen Delivery Method Room Air 07/24/21 22:57 07/24/21 23:23 Temperature Temperature Source Pulse Rate 70 Pulse Rate [Lying] Pulse Rate [Sitting] Pulse Rate [Standing] Respiratory Rate 17 Respiratory Effort Respiratory Pattern Blood Pressure 124/60 H Blood Pressure [Lying] Blood Pressure [Sitting] Blood Pressure [Standing] Blood Pressure Mean 81 Blood Pressure Mean [Lying] Blood Pressure Mean [Sitting] Blood Pressure Mean [Standing] Pulse Ox 96 97 Oxygen Delivery Method Room Air Room Air MDM MDM MDM Narrative Medical decision making narrative: Patient's pulse ox is 92% on room air. I will obtain a chest x-ray. His blood pressure is 109/85. Orthostatics will be obtained. He will be bolused normal saline 1 L intravenously I will also check his baseline labs of a CBC and and electrolyte panel. He was swabbed for Covid as he states he has not been vaccinated against it. EKG demonstrates normal sinus rhythm at 77 bpm without ectopy or acute ST changes. His CBC is grossly normal. Hemoglobin 16.0. Platelet count is normal. His electrolyte panel shows chloride slightly high at 108, normal sodium of 140. Creatinine normal at 1.2, BUN normal at 13. His orthostatics are negative. Recheck of his pulse ox shows it to be 96% on room air without evidence of hypoxia. I reviewed his chest x-ray, and see no evidence of pneumothorax or infiltrate. This was confirmed by the radiologist, no acute process. Covid swab is negative. Upon repeat examination, patient is feeling markedly improve d. I feel he can be discharged safely home with follow-up. He has an improved blood pressure at 124/60. Return instructions to the emergency department were reviewed. Disposition is discharged home in stable condition. Lab Data Attestation: I reviewed the patient's lab results. Labs: Laboratory Results - last 24 hr 07/24/21 07/24/21 22:11 22:11 WBC 6.1 RBC 5.37 Hgb 16.0 Hct 47.0 MCV 87.5 MCH 29.8 MCHC 34.0 RDW Std Deviation 42.1 RDW Coeff of Abdelrahman 13.2 Plt Count 203 MPV 10.1 Immature Gran % (Auto) 0.300 Neut % (Auto) 67.8 Lymph % (Auto) 18.6 L [place] % (Auto) 12.0 H Eos % (Auto) 0.8 Baso % (Auto) 0.5 Absolute Neuts (auto) 4.1 Absolute Lymphs (auto) 1.13 Nucleated RBC % 0 Sodium 140 Potassium 3.9 Chloride 108 H Carbon Dioxide 27.0 Anion Gap 5 BUN 13 Creatinine 1.24 Estim Creat Clear Calc 83.40 Est GFR (MDRD) Af Amer 84 Est GFR (MDRD) Non-Af 69 BUN/Creatinine Ratio 10.5 Glucose 89 Calcium 8.9 Radiography Diagnostic Testing: Clinical Impression(s) from Imaging Studies Chest X-Ray 07/24/21 22:10 IMPRESSION: No acute radiographic abnormalities. Electronically Signed: Donald Carreno MD at 23:41 EST Tel , Service support , Discharge Plan Triage Chief Complaint: Dizziness ED Provider: London Torres Dx/Rx/DC Orders Clinical Impression: Light-headedness Instructions: ED Near-Fainting, Uncertain Cause Prescriptions: No Action pantoprazole 40 MG tablet 40 mg PO BID Qty: 60 RF: 0 Primary Care Provider: Care Physician,No Primary Referrals: Duran Sullivan MD [STAFF PHYSICIAN] - 08/01/21 Care Physician,No Primary [Primary Care Provider] - Disposition Disposition: Home, Self Care
[2021-07-24] MEDS: 0.9% Normal Saline 1,000 ML 999 ML IV (22:10)
--- NOTE | 2021-07-24 22:10 | RAD_ITS ---
INDICATION: shortness of breath EXAMINATION/TECHNIQUE: X-RAY - XR Chest 1 View COMPARISON: 11/04/2020. FINDINGS: The lungs are clear. The cardiomediastinal silhouette is unremarkable. No pleural effusion or pneumothorax. No acute osseous abnormalities. RAD/Chest 1 View (Portable) IMPRESSION: No acute radiographic abnormalities. Electronically Signed: Doanld Carreno MD at 23:41 EST Tel , Service support ,
[2021-07-24 22:19] LABS: Absolute Lymphocyte Count 1.13 X10^3/uL (0.83-4.51); Absolute Neutrophil Count 4.1 X10^3/uL (2.0-7.7); Basophil# 0.03 X10^3/uL; Basophil% 0.5 % (0-1); Eosinophil# 0.05 X10^3/uL; Eosinophils% 0.8 % (0-5); Lymphocyte # 1.13 X10^3/ul (0.83-4.51); Lymphocyte % 18.6 % (19-41); Mean Corpuscular Hgb 29.8 pg (27.0-32.0); Mean Corpuscular Volume 87.5 fL (80-94); Mean Platelet Vol. 10.1 fl (6.2-12.0); Monocyte# 0.73 X10^3/uL; NRBC Flagged by Analyzer 0 % (0-5); Neutrophil % 67.8 % (47-70); Platelet Count 203 K/mm3 (150-450); RBC Distribution Width CV 13.2 % (11.6-14.6); RBC Distribution Width SD 42.1 fl (35.1-43.9); Red Blood Count 5.37 M/mm3 (4.6-6.2); White Blood Count 6.1 K/mm3 (4.4-11.0)
[2021-07-24 22:31] LABS: Anion Gap 5 (5-15); BUN 13 mg/dL (7-18); BUN/Creat Ratio 10.5 RATIO (10-20); Calcium,Total 8.9 mg/dL (8.5-10.1); Chloride 108 mmol/L (98-107); Creatinine, Serum 1.24 mg/dL (0.70-1.30); EST Glomerular Filtration Rate 69 mL/min (>60); Est Glom Filt Rate - Afr Amer 84 mL/min (>60); Glucose 89 mg/dL (74-106); Potassium 3.9 mmol/L (3.5-5.1); Sodium Level 140 mmol/L (136-145)
[2021-07-24 22:33] VITALS: BP 116/66; BP 119/81; BP 135/89; PULSE 65; PULSE 73; PULSE 77
[2021-07-24 22:57] VITALS: O2SAT 96
[2021-07-24 23:23] VITALS: BP 124/60; PULSE 70; RESP 17; O2SAT 97
--- NOTE | 2021-07-24 23:41 | NURSING ---
patient states he wants to leave and does not want to wait for the cxr results and is aware that is what the doctor wants before discharge. He still declines when I told him the doctor wants to be sure of those final results because of the symptoms he came in for, tonight but states he is going to go with PCP jeanette. Reveiwed his reason for visit today and when to call 04/09. Rad results returned at this time and cleared to go by Dr Torres.
== END 2021-07-24 23:49 | disposition home or self-care (01) ==
PROVIDERS: Emergency Provider Emergency Medicine
DX: R42 Dizziness and giddiness (principal); F17.210 Nicotine dependence, cigarettes, uncomplicated; Z79.899 Other long term (current) drug therapy
CPT/HCPCS: 71045; 80048; 85025; 87426; 93005; 99284; J7030

== ENCOUNTER 2021-08-06 12:02 | Emergency (ER) | payer SELFPAY ==
[2021-08-06 12:03] VITALS: BP 108/73; PULSE 73; RESP 16; TEMP 36.4; O2SAT 99; BMI 34.4
--- NOTE | 2021-08-06 12:30 | EDS_ITS ---
HPI History of Present Illness Chief Complaint: Back Detail of Chief Complaint: Right lower posterior rib cage pain Informant: patient Onset/Context/Timing Onset: Days Context: Gradual Onset Timing: Continuous Current Severity: Mild Maximum Severity: Mild Narrative Narrative: 36-year-old male no stated past medical history. States had right posterior rib cage pain for last 3 to 4 days has been constant is worse with coughing. He has a nonproductive cough. He denies any hemoptysis. No abd ominal pain. No fever or chills. No nausea, vomiting or diarrhea. States he had a recent emergency department visit within the last week or so with a negative Covid test. Prior similar symptoms: No Recent Illness/Hospitalization: No PFSH PFSH Medical History Smoker Home Medications pantoprazole 40 mg PO BID #60 tab 11/04/20 [Rx Last Taken Unknown] Allergy/AdvReac Type Severity Reaction Status Date / Time No Known Allergies Allergy Verified 08/06/21 12:05 Social History Smoking Status: Current every day smoker tobacco type: cigarettes ROS ROS ED ROS Narrative Right posterior rib cage pain and no fall injury or trauma. Review of Systems ROS Unobtainable: Denies due to encephalopathy Constitutional Constitutional ED: Denies chills or fever(s) Eyes Eyes: Denies change in vision ENT ENT ED: Denies ear pain Cardiovascular Cardiovascular: Denies chest pain, palpitations or racing heartbeat Respiratory/Chest Respiratory/Chest: Denies cough or dyspnea Gastrointestinal Gastrointestinal: Denies abdominal pain, diarrhea, nausea or vomiting Genitourinary Genitourinary ED: Denies dysuria or hematuria Musculoskeletal Musculoskeletal: Denies arthralgias or myalgias Integumentary Denies abscess or rash Neurologic Neurologic: Denies headache(s), paresthesias or weakness Psychiatric Psychiatric: Denies anxiety or depression Endocrine Endocrinology: Denies polydipsia or polyuria Allergic/Immunologic Allergic/Immunologic ED: Denies urticaria EXAM Physical Exam Narrative Exam Narrative: 28-year-old male no acute distress. Vital signs are stable and afebrile his pulse ox 9 9% on room air no signs hypoxia. HEENT exam unremarka ble. Moist extremities. Neck nontender. Lungs clear to auscultation bilaterally. Heart regular rate and rhythm rate about 70 no murmur. Anterior chest wall nontender. Abdomen soft nontender. Right upper quadrant completely nontender. Pelvic girdle intact. Moving all 4 extremities. 5-5 data warehouse developer strength. Dorsi plantarflexion intact. Calves nontender no edema. Back spine nontender. Right posterior lower rib cage mild tenderness. No ecchymosis or bruising. No subcu air crepitance. No bony deformity. Neurologically is awake and alert with normal motor strength. Const Vital Signs: 08/06/21 12:03 08/06/21 13:27 Temperature 97.5 F L Temperature Source Temporal Pulse Rate 73 51 L Respiratory Rate 16 16 Blood Pressure 108/73 103/58 L Blood Pressure Mean 84 73 Pulse Ox 99 95 Oxygen Delivery Method Room Air Room Air Positive well nourished, well developed and obese; Negative for cachectic, contractures or unkempt General Appearance ED: well developed and NAD; Negative for unkempt, cachectic, contractures, cyanotic, diaphoretic or pallor Nutritional Appearance: obese; Negative for cachectic HEENT Reports moist mucous membranes Negative for trauma or tenderness Eyes PERRL and EOMs intact bilaterally Neck no lymphadenopathy, supple and no JVD General: Negative for tenderness Chest Wall inspection of chest normal and palpation of chest normal Resp normal respiratory effort and clear to auscultation bilaterally Effort and Inspection: pain with movement Auscultation: Negative for rales, rhonchi, wheezes or diminished lung sounds Cardio regular rate, regular rhythm, S1 normal heart sound, S2 normal heart sound and no murmurs Palpation: Negative for palpable S3 GI normal to inspection, nondistended, normoactive bowel sounds, non-tender, non- distended and no masses Inspection: Negative for abdominal distention Auscultation: normoactive bowel sounds Palpation: soft; Negative for tender, guarding or rebound tenderness present Back/Spine no CVA tenderness General Back: Negative for CVA tenderness Cervical Spine: Negative for cervical spine tenderness Thoracic Spine / Upper Back: Negative for thoracic spinal tenderness or paraspinal muscle tenderness Lumbar Spine / Lower Back: Negative for lumbar spinal tenderness Extremity normal to inspection General Extremety ED: Negative for edema or tenderness General Extremity: Negative for edema Neuro oriented x3, CN's II-XII intact bilaterally and no sensory deficits noted Sensorium / Orientation: alert; Negative for orientation impaired, lethargic or stuporous Motor Exam: strength 5/5 throughout Psych mental status grossly normal Appearance: Negative for unkempt Attitude: No agitated Mood & Affect: Negative for depressed, anxious or tearful Skin no rashes or lesions noted and no wounds General Skin Exam: Negative for jaundice or pallor MDM MDM MDM Narrative Medical decision making narrative: 36-year-old male with right lower rib cage pain after coughing. This very well could be musculoskeletal in etiology. I would obtain a chest x-ray to rule out pneumonia or an obvious rib injury. Also urinalysis but is really not having any urinary symptoms and no history of a kidney stone. Repeat exam at child 1:48 PM unchanged I think patient has a strain right posterior rib cage from coughing. He will be discharged home. Lab Data Attestation: I reviewed the patient's lab results. Lab results narrative: Urinalysis shows no acute abnormality. No whites or red cells no bacteria nor nitrates. Chest x-ray unremarkable. Labs: Laboratory Results - last 24 hr 08/06/21 12:40 Urine Color Yellow Urine Clarity Sl. Cloudy Urine pH 5.0 Ur Specific [place] 1.025 Urine Protein 15 H Urine Glucose (UA) Normal Urine Ketones 5 H Urine Occult Blood Negative Urine Nitrite Negative Urine Bilirubin Negative Urine Urobilinogen Normal Ur Leukocyte Esterase Negative Urine RBC 0 SEEN Urine WBC 0 SEEN Ur Squamous Epith Cells 0 SEEN Urine Bacteria 0 SEEN Urine Mucus 0 SEEN Radiography Chest X-Ray - ED: 1 View, Read by ED Physician, Normal, Heart, Lungs, Mediastinum, Bony Structures and No Acute Disease Diagnostic Testing: Clinical Impression(s) from Imaging Studies Chest X-Ray 08/06/21 12:30 IMPRESSION: Normal x-ray examination of the chest. Electronically Signed: Reji Patel MD at 13:11 EST Tel , Service support , Chest x-ray, portable, single view interpreted by myself and the radiologist shows no acute abnormality. Also I reviewed the patient had prior unremarkable labs in late June. Discharge Plan Triage Chief Complaint: Back ED Provider: Santosh Olivares Dx/Rx/DC Orders Clinical Impression: Chest wall muscle strain Instructions: ED Back Sprain/Strain Prescriptions: No Action pantoprazole 40 MG tablet 40 mg PO BID Qty: 60 RF: 0 Primary Care Provider: Care Physician,Jennifer Primary Referrals: Damion Prince MD [STAFF PHYSICIAN] - 1 Week if not improving Care Physician,No Primary [Primary Care Provider] - Activity Restrictions/Additional Instructions: Motrin Tylenol for your right rib cage pain. This should progressively improve. Your chest x-ray was normal as was her urinalysis. Follow-up if not improving. Disposition Disposition: Home, Self Care
--- NOTE | 2021-08-06 12:30 | RAD_ITS ---
STUDY: X-RAY CHEST REASON FOR EXAM: Male, 36 years old. Cough TECHNIQUE: Single frontal view of the chest. COMPARISON: 07/24/21. FINDINGS: The lungs are clear and expanded. There is no demonstrated pleural abnormality. Normal size heart. Normal mediastinum and chantell. Normal visualized pulmonary arteries. Normal visualized aortic arch and descending thoracic aorta. Normal visualized thoracic spine. Normal visualized ribs, clavicles, and shoulders. There is no demonstrated abnormality of the visualized soft tissue structures of the upper abdomen. RAD/Chest 1 View (Portable) IMPRESSION: Normal x-ray examination of the chest. Electronically Signed: Reji Patel MD at 13:11 EST Tel , Service support ,
[2021-08-06 12:46] LABS: Bacteria 0 SEEN /hpf (None Seen); Mucous, Urine 0 SEEN /hpf (<or=2+); Red Blood Cells-Urine 0 SEEN /hpf (0-5); Squamous Epithelial Cells - UA 0 SEEN /hpf (0-5); White Blood Cells 0 SEEN /hpf (0-5)
[2021-08-06 12:52] LABS: Color, Urine Yellow (Yellow); Glucose, Dipstick Normal (Normal); Ketone-Dipstick 5 mg/dl (Negative); Leukocyte Esterase-Dipstick Negative /ul (Negative); Nitrite-Dipstick Negative (Negative); Occult Blood-Urine Negative /ul (Negative); Protein-Dipstick 15 mg/dl (Negative); Specific Gravity, Urine 1.025 (1.002-1.030); Urine Bilirubin Dipstick Negative (Negative); Urine Clarity Sl. Cloudy (Clear); Urine Urobilinogen Normal (Normal)
[2021-08-06 13:27] VITALS: BP 103/58; PULSE 51; RESP 16; O2SAT 95
== END 2021-08-06 14:01 | disposition home or self-care (01) ==
PROVIDERS: Emergency Provider Emergency Medicine; Visit Provider Emergency Medicine
DX: S29.011A Strain of muscle and tendon of front wall of thorax, initial encounter (principal); X58.XXXA Exposure to other specified factors, initial encounter; F17.210 Nicotine dependence, cigarettes, uncomplicated
CPT/HCPCS: 71045; 81001; 99282

== ENCOUNTER 2022-04-27 22:31 | Emergency (ER) | payer SELFPAY ==
[2022-04-27 22:32] VITALS: BP 122/86; PULSE 60; RESP 15; TEMP 36.3; O2SAT 98; BMI 34.4
--- NOTE | 2022-04-28 00:29 | EDS_ITS ---
HPI History of Present Illness Chief Complaint: Flank Pain Narrative Narrative: Patient is a 37-year-old male with past medical history of smoking. He states that 3 to 4 days ago he stepped out of the shower and was taking his Tylenol around to dry his back. He states when he did this he felt pain in his left mid low back. He reports since that time any motion can cause increased pain. He denies any hematuria or dysuria. He denies any loss of bowel or bladder control. He denies any IV drug use. He reports that he takes a hot shower it seems to make it feel better for a few minutes. He states has been trying [id number] medication with minimal symptom improvement and secondary to this comes in for evaluation [facility] Medical History Smoker Home Medications methocarbamol 500 mg tablet 1,000 mg PO 4X/DAY PRN PRN Muscle pain/spasm 7 days #56 tabs 04/28/22 [Rx Last Taken Unknown] oxycodone-acetaminophen 5 mg-325 mg tablet (Percocet) 1 tab PO Q6H PRN pain 3 days #12 tabs 04/28/22 [Rx Last Taken Unknown] Allergy/AdvReac Type Severity Reaction Status Date / Time No Known Allergies Allergy Verified 08/06/21 12:05 Social History Smoking Status: Current every day smoker tobacco type: cigarettes ROS ROS ED Constitutional Constitutional ED: Denies chills or fever(s) ENT ENT ED: Denies sore throat Cardiovascular Cardiovascular: Denies chest pain Respiratory/Chest Respiratory/Chest: Denies cough or dyspnea Gastrointestinal Gastrointestinal: Denies abdominal pain, diarrhea, nausea or vomiting Genitourinary Genitourinary ED: Denies dysuria or hematuria Musculoskeletal Musculoskeletal: Reports back pain; Denies myalgias Integumentary Denies rash Neurologic Neurologic: Denies headache(s) or paresthesias Hematologic/Lymphatic Hematologic/Lymphatic: Denies easy bleeding or easy bruising EXAM Physical Exam Const Vital Signs: 04/27/22 22:32 04/27/22 23:31 04/28/22 01:08 Temperature 97.3 F L Temperature Source Temporal Pulse Rate 60 72 Respiratory Rate 15 16 Respiratory Effort Normal Non-Labored Respiratory Pattern Normal Blood Pressure 122/86 H 132/68 H Blood Pressure Mean 98 89 Pulse Ox 98 97 Oxygen Delivery Method Room Air Room Air Positive well nourished and well developed General Appearance ED: well developed Eyes PERRL and EOMs intact bilaterally Neck supple Resp normal respiratory effort and clear to auscultation bilaterally Cardio regular rate and regular rhythm Rate: other Other Details: Radial pulses are plus 2 out of 4 bilaterally are equal and symmetric GI normal to inspection, nondistended, normoactive bowel sounds, non-tender and non-distended GI Narrative: No voluntary guarding or rigidity no pulsatile mass Auscultation: normoactive bowel sounds Palpation: soft Back/Spine Back/Spine Narrative: No bony deformity or step-off of the thoracic or lumbar spine no midline pain with palpation. There is tension and spasm noted along the left paralumbar muscle belly region over top the psoas muscle. The pain worsens with extension and rotation. No saddle anesthesia. Negative straight leg raise. No clonus or Babinski. Patellar reflexes are plus 2 out of 4 bilaterally are equal and symmetric. Extremity normal to inspection Neuro oriented x3, CN's II-XII intact bilaterally and no sensory deficits noted Sensorium / Orientation: alert Psych mental status grossly normal Skin no rashes or lesions noted Skin Narrative: No overlying soft tissue skin changes to suggest trauma or infection MDM MDM MDM Narrative Medical decision making narrative: Patient presented to the ER with stable vitals and no history or physical exam findings concerning for cauda equina or epidural abscess. His pain is worse with motion mainly in the extension and rotation direction indicating a psoas muscle spasm. He has no signs of neurologic impingement. There is no report of hematuria or dysuria to suggest pyelonephritis or kidney stone. We discussed possible labs and imaging but at this time as history and exam suggest a musculoskeletal cause of the pain patient simply wishes to be treated. Therefore he was given medication ER and we placed on pain medication and muscle relaxers for home and is otherwise safe for discharge Discharge Plan Triage Chief Complaint: Flank Pain ED Provider: Lalo Arroyo Dx/Rx/DC Orders Clinical Impression: Acute lumbosacral myofascial strain, Tobacco abuse Instructions: Lumbar Stretch (Flexibility), ED Back Sprain/Strain Prescriptions: New oxycodone-acetaminophen [Percocet] 5-325 mg tablet 1 tab PO Q6H PRN (Reason: pain) 3 Days Qty: 12 0RF methocarbamol 500 mg tablet 1,000 mg PO 4X/DAY PRN PRN (Reason: Muscle pain/spasm) 7 Days Qty: 56 0RF Primary Care Provider: Care Physician,No Primary Referrals: Lily Mckeon MD [Med Staff - Homeland Security Program Specialist] - 5-7 Days Care Physician,No Primary [Primary Care Provider] - Activity Restrictions/Additional Instructions: Please continue to stretch and heat your low back to help reduce pain and speed healing and return to the ER should you have any further concerns Disposition Disposition: Home, Self Care Discharge Date/Time: 04/28/22 01:10
[2022-04-28] MEDS: Morphine 4 MG/ML Syringe IV (00:54)
[2022-04-28] MEDS: Ondansetron 4 MG/2 ML Vial IV (00:54)
[2022-04-28] MEDS: Orphenadrine 60 MG/2 ML Ampul IV (00:54)
[2022-04-28] MEDS: dexAMETHasone 10 MG/ML Vial IV (00:54)
[2022-04-28 01:08] VITALS: BP 132/68; PULSE 72; RESP 16; O2SAT 97
== END 2022-04-28 01:10 | disposition home or self-care (01) ==
PROVIDERS: Emergency Provider Emergency Medicine; Visit Provider Emergency Medicine
DX: S39.012A Strain of muscle, fascia and tendon of lower back, initial encounter (principal); F17.210 Nicotine dependence, cigarettes, uncomplicated; X58.XXXA Exposure to other specified factors, initial encounter
CPT/HCPCS: 96374; 96375; 99283; A4216; J2405

== ENCOUNTER 2022-06-12 10:43 | Emergency (ER) | payer SELFPAY ==
[2022-06-12 10:44] VITALS: BP 121/74; PULSE 68; RESP 14; TEMP 36.6; O2SAT 99; BMI 30.8
[2022-06-12] MEDS: Morphine 4 MG/ML Syringe 8 MG IM (11:46)
[2022-06-12] MEDS: Ibuprofen 600 MG Tablet PO (11:46)
--- NOTE | 2022-06-12 11:56 | EX.ED.DYSGE1 ---
HPI History of Present Illness Chief Complaint: Other, Pain/Inj Informant: patient Narrative Narrative: TobaccoPatient is a 37-year-old male with history of hypertension he is presenting with left-sided back pain and neck pain. Patient states he slept funny 2 days ago and woke up with the pain. He states yesterday throughout the day he was actually feeling a little bit better but this morning the symptoms were significantly worse. States its worse under his left shoulder blade. Is worse when he turns to the left or moves. No change with respirations. Describes the pain as sharp. Notes he has similar back pain couple months ago and received also muscle relaxers, pain medicine and shot of pain medicine in the ER which did help. He does not currently have a primary care doctor is interested in getting one. No other complaints at this time. Denies any numbness, weakness or vision changes. Denies any fever or chills. Notes he did have some tingling in his left hand earlier today which has since resolved. PFSH PFSH Medical History Smoker Home Medications methocarbamol 500 mg tablet 1,000 mg PO 4X/DAY PRN PRN Muscle pain/spasm 7 days #56 tabs 04/28/22 [Rx Last Taken Unknown] oxycodone-acetaminophen 5 mg-325 mg tablet (Percocet) 1 tab PO Q6H PRN pain 3 days #12 tabs 04/28/22 [Rx Last Taken Unknown] cyclobenzaprine 10 mg tablet 10 mg PO TID PRN muscle spasm #20 tabs 06/12/22 [Rx Last Taken Unknown] ibuprofen 600 mg tablet 600 mg PO Q6H PRN PRN fever or pain #20 tabs 06/12/22 [Rx Last Taken Unknown] Allergy/AdvReac Type Severity Reaction Status Date / Time No Known Allergies Allergy Verified 06/12/22 10:45 Social History Smoking Status: Current every day smoker tobacco type: cigarettes ROS ROS ED Constitutional Constitutional ED: Denies chills or fever(s) Eyes Eyes: Denies change in vision ENT ENT ED: Denies rhinorrhea or sore throat Cardiovascular Cardiovascular: Denies chest pain or palpitations Respiratory/Chest Respiratory/Chest: Denies cough or dyspnea Gastrointestinal Gastrointestinal: Denies abdominal pain or nausea Musculoskeletal Musculoskeletal: Reports back pain and neck pain; Denies myalgias Integumentary Denies Abrasions or rash Neurologic Neurologic: Reports paresthesias LLE; Denies headache(s) or weakness Psychiatric Psychiatric: Denies anxiety or depression Hematologic/Lymphatic Hematologic/Lymphatic: Denies easy bleeding or easy bruising EXAM Physical Exam Const Vital Signs: 06/12/22 10:44 06/12/22 12:29 Temperature 97.8 F Temperature Source Temporal Pulse Rate 68 Respiratory Rate 14 18 Blood Pressure 121/74 H Blood Pressure Mean 89 Pulse Ox 99 Oxygen Delivery Method Room Air Positive well nourished and well developed Constitutional Narrative: Initially patient is crouching on the ground when I walk into the room. Is able to get himself up and move himself to the bed without any difficulty General Appearance ED: well developed and NAD HEENT Reports TM's clear and moist mucous membranes Tympanic Membrane ED: Yes TM's clear Eyes PERRL and EOMs intact bilaterally Neck supple and no JVD Neck Narrative: No midline tenderness. Mild sided paraspinal tenderness. Increased pain with range of motion of the neck. No nuchal rigidity. No meningeal signs. Chest Wall inspection of chest normal and palpation of chest normal Resp normal respiratory effort and clear to auscultation bilaterally Cardio regular rate, regular rhythm and no murmurs GI normal to inspection, nondistended, normoactive bowel sounds and non-tender Back/Spine no CVA tenderness Back/Spine Narrative: To palpation of the left thoracic area at the mid axillary line Extremity normal to inspection Neuro oriented x3, CN's II-XII intact bilaterally and no sensory deficits noted Sensorium / Orientation: alert Motor Exam: strength 5/5 throughout Psych mental status grossly normal Skin no rashes or lesions noted and no wounds MDM MDM MDM Narrative Medical decision making narrative: Patient is low for muscle skeletal neck and back pain. Physical exam most consistent with muscle spasm. Suspect he could have involvement of the trapezius. Likely triggered by his sleeping in a poor position. Patient is given dose of IM morphine in the ER. We discharged home with a course of muscle relaxers. Is also started on anti-inflammatories. Counseled return precaution. Given referral for primary care doctor. Discussed follow-up with chiropractor as well. Discussed using warm heat. Patient is neurovascularly intact. Discharged home in stable condition. Discharge Plan Triage Chief Complaint: Other, Pain/Inj ED Provider: Deanna Ontiveros Dx/Rx/DC Orders Clinical Impression: Acute torticollis, Trapezius muscle spasm Instructions: ED Neck Spasm, No Trauma Prescriptions: New ibuprofen 600 mg tablet 600 mg PO Q6H PRN PRN (Reason: fever or pain) Qty: 20 0RF cyclobenzaprine 10 mg tablet 10 mg PO TID PRN (Reason: muscle spasm) Qty: 20 0RF No Action oxycodone-acetaminophen [Percocet] 5-325 mg tablet 1 tab PO Q6H PRN (Reason: pain) 3 Days Qty: 12 0RF methocarbamol 500 mg tablet 1,000 mg PO 4X/DAY PRN PRN (Reason: Muscle pain/spasm) 7 Days Qty: 56 0RF Primary Care Provider: Care Physician,No Primary Referrals: Nataly Bernal DO [Med Staff - Motion Study Technician] - As soon as possible Care Physician,No Primary [Primary Care Provider] - Disposition Disposition: Home, Self Care Discharge Date/Time: 06/12/22 12:32
[2022-06-12 12:29] VITALS: RESP 18
== END 2022-06-12 12:32 | disposition home or self-care (01) ==
PROVIDERS: Emergency Provider Emergency Medicine; Visit Provider Emergency Medicine
DX: M43.6 Torticollis (principal); M62.838 Other muscle spasm; F17.210 Nicotine dependence, cigarettes, uncomplicated
CPT/HCPCS: 96372; 99283

== ENCOUNTER 2022-06-26 12:50 | Emergency (ER) | payer SELFPAY ==
[2022-06-26 12:51] VITALS: BP 130/97; PULSE 56; RESP 18; TEMP 35.8; O2SAT 98; BMI 36.7
--- NOTE | 2022-06-26 13:25 | EDS_ITS ---
HPI History of Present Illness Chief Complaint: Back Informant: patient Narrative Narrative: Patient states he has been getting pain under his left scapula for 2 or 3 weeks. He states he knows this started when he slept funny. He was seen once. The medicine did help. But it still going on. There are days that are good days that are bad. It definitely hurts if he moves twists or reaches overhead. He denies being short of breath or coughing. No history of DVT or PE. No travel surgery or immobilization. He thinks his dad had a DVT as a complication of a bad leg infection with swelling and hospitalizations. Patient states that if he stretches the area he feels like he can get it better but then it gets worse again. PFSH PFSH Medical History Smoker Home Medications methocarbamol 500 mg tablet 1,000 mg PO 4X/DAY PRN PRN Muscle pain/spasm 7 days #56 tabs 04/28/22 [Rx Last Taken Unknown] oxycodone-acetaminophen 5 mg-325 mg tablet (Percocet) 1 tab PO Q6H PRN pain 3 days #12 tabs 04/28/22 [Rx Last Taken Unknown] cyclobenzaprine 10 mg tablet 10 mg PO TID PRN muscle spasm #20 tabs 06/12/22 [Rx Last Taken Unknown] ibuprofen 600 mg tablet 600 mg PO Q6H PRN PRN fever or pain #20 tabs 06/12/22 [Rx Last Taken Unknown] prednisone 20 mg tablet 60 mg PO DAILY #15 tabs 06/26/22 [Rx Last Taken Unknown] tramadol 50 mg tablet 50 mg PO Q6H PRN pain 3 days #10 tabs 06/26/22 [Rx Last Taken Unknown] Allergy/AdvReac Type Severity Reaction Status Date / Time No Known Allergies Allergy Verified 06/26/22 12:53 Social History Smoking Status: Current every day smoker tobacco type: cigarettes ROS ROS ED Constitutional Constitutional ED: Denies chills, fever(s), subjective or sweats ENT ENT ED: Denies rhinorrhea Cardiovascular Cardiovascular: Denies chest pain, palpitations, paroxysmal nocturnal dyspnea or racing heartbeat Respiratory/Chest Respiratory/Chest: Denies cough, dyspnea, dyspnea on exertion, paroxysmal nocturnal dyspnea or sputum Gastrointestinal Gastrointestinal: Denies abdominal pain, nausea or vomiting Genitourinary Genitourinary ED: Denies dysuria or hematuria Musculoskeletal Musculoskeletal: Reports other Details: See history of present illness. Integumentary Denies rash Neurologic Neurologic: Denies paresthesias or weakness Endocrine Endocrinology: Denies polydipsia or polyuria Hematologic/Lymphatic Hematologic/Lymphatic: Denies lymphadenopathy Allergic/Immunologic Allergic/Immunologic ED: Denies urticaria EXAM Physical Exam Const Vital Signs: 06/26/22 12:51 Temperature 96.5 F L Temperature Source Temporal Pulse Rate 56 L Respiratory Rate 18 Blood Pressure 130/97 H Blood Pressure Mean 108 Pulse Ox 98 Oxygen Delivery Method Room Air Positive well nourished and well developed General Appearance ED: well developed and NAD HEENT atraumatic Neck full ROM General: Negative for tenderness Chest Wall inspection of chest normal and palpation of chest normal Chest Narrative: Anterior chest wall shows no tenderness. No subcu air. No crepitance. Resp normal respiratory effort and clear to auscultation bilaterally Resp Narrative: Patient can take good deep breaths without difficulty. Cardio regular rhythm and no murmurs GI normal to inspection, nondistended, normoactive bowel sounds, non-tender and non-distended Narrative: No CVA tenderness Back/Spine normal to inspection Back/Spine Narrative: Patient has some tenderness really at the medial lower aspect of the left scapula. When I have him push his hand straight out in front of his chest against resistance it really reproduces his symptoms. Reaching overhead also reproduces it a bit. Twisting does not reproduce it as much. There is no mass. No bruising or skin changes. Extremity normal to inspection and full ROM General Extremety ED: Negative for deformity, edema or tenderness General Extremity: Negative for deformity or edema Neuro Sensorium / Orientation: alert Psych mental status grossly normal Skin no rashes or lesions noted MDM MDM MDM Narrative Medical decision making narrative: Patient has musculoskeletal type pain. Is reproducible with palpation and range of motion. He is PERC negative. We discussed options. He does not have insurance and really does not want an extensive work-up for this. I agree that I think he really does not need this. I will try to get him meds to calm this down. We discussed massage, stretching, ice and heat options also. We discussed returning if he has any cough, trouble breathing, leg swelling or other issues or concerns. Discharge Plan Triage Chief Complaint: Back ED Provider: Migel Sanabria Dx/Rx/DC Orders Clinical Impression: Muscle strain of left scapular region Instructions: ED Muscle Strain, Extremity Prescriptions: New prednisone 20 mg tablet 60 mg PO DAILY Qty: 15 0RF tramadol 50 mg tablet 50 mg PO Q6H PRN (Reason: pain) 3 Days Qty: 10 0RF No Action oxycodone-acetaminophen [Percocet] 5-325 mg tablet 1 tab PO Q6H PRN (Reason: pain) 3 Days Qty: 12 0RF methocarbamol 500 mg tablet 1,000 mg PO 4X/DAY PRN PRN (Reason: Muscle pain/spasm) 7 Days Qty: 56 0RF ibuprofen 600 mg tablet 600 mg PO Q6H PRN PRN (Reason: fever or pain) Qty: 20 0RF cyclobenzaprine 10 mg tablet 10 mg PO TID PRN (Reason: muscle spasm) Qty: 20 0RF Primary Care Provider: Care Physician,No Primary Referrals: Rolan Sher DO [Med Staff - [employer] Consultant] - 1 Week if not improving Care Physician,No Primary [Primary Care Provider] - Disposition Disposition: Home, Self Care Discharge Date/Time: 06/26/22 14:00
--- NOTE | 2022-06-26 13:47 | CM.ED ---
SW Note DYLLAN reviewed chart and noted patient has no PCP and no insurance. DYLLAN provided patient with financial resources packet including medicaid application and information on [facility]. No other issues or concerns voiced. SW remains available if needs arise. Francheska ROJAS
== END 2022-06-26 14:00 | disposition home or self-care (01) ==
PROVIDERS: Emergency Provider Emergency Medicine; Visit Provider Emergency Medicine
DX: S29.012A Strain of muscle and tendon of back wall of thorax, initial encounter (principal); F17.210 Nicotine dependence, cigarettes, uncomplicated; X58.XXXA Exposure to other specified factors, initial encounter
CPT/HCPCS: 99282

== ENCOUNTER 2022-10-01 19:27 | Emergency (ER) | payer MEDICAID, SELFPAY ==
[2022-10-01 19:28] VITALS: BP 134/86; PULSE 96; RESP 15; TEMP 36.9; O2SAT 99; BMI 36.8
--- NOTE | 2022-10-01 19:45 | EKG12_ITS ---
Test Reason : cp Blood Pressure : / mmHG Vent. Rate : 093 BPM Atrial Rate : 093 BPM P-R Int : 150 ms QRS Dur : 088 ms QT Int : 340 ms P-R-T Axes : 060 -02 039 degrees QTc Int : 422 ms Normal sinus rhythm Poor R wave progression Confirmed by SAMUEL SAVAGE, BRITTNEE ([id number]), photograph editor ANANTH GONZALEZ ([id number]) on 10/02/2022 2:44:30 PM Referred By: Sheridan Confirmed By:BRITTNEE BAKER MD
--- NOTE | 2022-10-01 19:46 | EX.ED.DYSGE1 ---
HPI History of Present Illness Chief Complaint: Chest Other Detail of Chief Complaint: Chest pain and left arm pain Informant: patient Narrative Narrative: Patient presents the emergency department complaint of pain in his left arm. Patient states that he was seen in the emergency department for same and was given steroids and that really seem to help. He recalls history of a fall about 3-1/2 months ago when he was on a boat and kind of landed on his chest. For the last 2 months has had numbness and tingling in his left arm and at times pain into the left armpit and lateral chest. Denies fever. He denies significant cough. He denies hemoptysis. No history of PE or DVT. Patient thinks that maybe his arm hyper little more swollen than the opposite. Patient denies any direct trauma to his arm. PFSH PFSH Medical History Smoker Home Medications methocarbamol 500 mg tablet 1,000 mg PO 4X/DAY PRN PRN Muscle pain/spasm 7 days #56 tabs 04/28/22 [Rx Last Taken Unknown] oxycodone-acetaminophen 5 mg-325 mg tablet (Percocet) 1 tab PO Q6H PRN pain 3 days #12 tabs 04/28/22 [Rx Last Taken Unknown] cyclobenzaprine 10 mg tablet 10 mg PO TID PRN muscle spasm #20 tabs 06/12/22 [Rx Last Taken Unknown] ibuprofen 600 mg tablet 600 mg PO Q6H PRN PRN fever or pain #20 tabs 06/12/22 [Rx Last Taken Unknown] prednisone 20 mg tablet 60 mg PO DAILY #15 tabs 06/26/22 [Rx Last Taken Unknown] tramadol 50 mg tablet 50 mg PO Q6H PRN pain 3 days #10 tabs 06/26/22 [Rx Last Taken Unknown] hydrocodone-acetaminophen 5-325mg 5mg-325mg 1 tab PO Q4H PRN PRN Pain 2 days #10 TABLETS 10/01/22 [Rx Last Taken Unknown] naproxen 500 mg tablet 500 mg PO BID #14 tabs 10/01/22 [Rx Last Taken Unknown] Allergy/AdvReac Type Severity Reaction Status Date / Time No Known Allergies Allergy Verified 10/01/22 19:33 Social History Smoking Status: Current every day smoker tobacco type: cigarettes ROS ROS ED Review of Systems ROS Unobtainable: other Constitutional Constitutional ED: Reports lethargy; Denies chills, fever(s), sweats or weight loss Eyes Eyes: Denies blurry vision, change in vision or diplopia ENT ENT ED: Denies rhinorrhea or sore throat Cardiovascular Cardiovascular: Reports chest pain; Denies orthopnea or racing heartbeat Respiratory/Chest Respiratory/Chest: Denies cough, dyspnea, dyspnea on exertion, orthopnea or sputum Gastrointestinal Gastrointestinal: Denies abdominal pain, diarrhea, nausea or vomiting Genitourinary Genitourinary ED: Denies dysuria, hematuria or urinary frequency Musculoskeletal Musculoskeletal: Reports other Details: Left arm pain and paresthesias ; Denies arthralgias, back pain, myalgias or neck pain Integumentary Denies abscess, Abrasions or rash Neurologic Neurologic: Reports paresthesias; Denies headache(s) or weakness Psychiatric Psychiatric: Denies anxiety, depression or suicidal thoughts Endocrine Endocrinology: Denies polydipsia, polyphagia or polyuria Hematologic/Lymphatic Hematologic/Lymphatic: Denies easy bleeding, easy bruising or lymphadenopathy Allergic/Immunologic Allergic/Immunologic ED: Denies mouth swelling, tongue swelling or urticaria EXAM Physical Exam Const Vital Signs: 10/01/22 19:28 10/01/22 20:43 Temperature 98.4 F Temperature Source Temporal Pulse Rate 96 84 Respiratory Rate 15 13 Blood Pressure 134/86 H Blood Pressure Mean 102 Pulse Ox 99 Oxygen Delivery Method Room Air Positive well nourished and well developed General Appearance ED: well developed and NAD HEENT Reports TM's clear and moist mucous membranes normocephalic and atraumatic; Negative for trauma or tenderness Tympanic Membrane ED: Yes TM's clear Eyes PERRL and EOMs intact bilaterally General Eye ED: Negative for pale conjunctiva or scleral icterus Neck no lymphadenopathy, supple and no JVD Neck Narrative: Pain over left trapezius that seems to reproduce some of his pain. General: Negative for tenderness Chest Wall inspection of chest normal and palpation of chest normal Chest: Negative for tenderness Resp normal respiratory effort and clear to auscultation bilaterally Effort and Inspection: Negative for respiratory distress or pain with movement Auscultation: Negative for rhonchi, wheezes or diminished lung sounds Cardio regular rate, regular rhythm, S1 normal heart sound, S2 normal heart sound and no murmurs Peripheral Pulses: pulses 2+ throughout GI normal to inspection, nondistended, normoactive bowel sounds, soft to palpation, non-tender, non-distended and no masses Back/Spine no CVA tenderness and no thoracic nor lumbar tenderness Extremity normal to inspection Extremity Narrative: Left-I do not appreciate any edema. There are no ropes or cords. There is no discoloration to the arm. Patient has normal range of motion in the left arm at the shoulder, elbow, and wrist as well as all digits. General Extremety ED: Negative for edema General Extremity: Negative for edema Neuro oriented x3, CN's II-XII intact bilaterally, no sensory deficits noted and gait normal Sensorium / Orientation: awake, alert, oriented to person, oriented to place and oriented to time Motor Exam: strength 5/5 throughout and strength abnormal Psych mental status grossly normal Skin no rashes or lesions noted and no wounds MDM MDM MDM Narrative Medical decision making narrative: Patient presents to the emergency department with left arm pain for 2 months. He had prior visit in this department. I did do cardiac work-up including EKG and troponin which were normal. CBC with differential was normal. Chemistries unremarkable. I did do a D-dimer as well which was negative at less than 0.27. This time I feel the pain more likely neuropathic. He has no weakness to the extremities. I do not feel he needs emergent MRI imaging. Patient will be referred to orthopedics for follow-up. Patient will be started on naproxen and given a few [place] for pain. History & Record Review Additional record(s) reviewed:: Prior ED visit Lab Data Attestation: I reviewed the patient's lab results. Labs: Laboratory Results - last 24 hr 10/01/22 10/01/22 10/01/22 20:00 20:00 20:00 WBC 10.5 RBC 5.71 Hgb 16.9 H Hct 50.1 MCV 87.7 MCH 29.6 MCHC 33.7 RDW Std Deviation 43.2 RDW Coeff of Abdelrahman 13.4 Plt Count 229 MPV 9.6 Immature Gran % (Auto) 0.300 Neut % (Auto) 58.2 Lymph % (Auto) 32.5 Moca % (Auto) 7.3 Eos % (Auto) 1.2 Baso % (Auto) 0.5 Absolute Neuts (auto) 6.1 Absolute Lymphs (auto) 3.42 Nucleated RBC % 0 D-Dimer Quant (PE/DVT) < 0.27 L Sodium 137 Potassium 3.8 Chloride 103 Carbon Dioxide 28.0 Anion Gap 6 BUN 15 Creatinine 1.22 Estim Creat Clear Calc 83.94 Est GFR (MDRD) Af Amer 85 Est GFR (MDRD) Non-Af 70 BUN/Creatinine Ratio 12.3 Glucose 114 H Calcium 9.2 Troponin I High Sens < 3 L EKG Initial EKG: Attestation: I personally reviewed and interpreted this EKG as follows: Comments: Sinus rhythm with a rate of 93 bpm with no acute ST segment changes Discharge Plan Triage Chief Complaint: Chest Other ED Provider: Danish Villeda Dx/Rx/DC Orders Clinical Impression: Arm pain, left, Neuropathy Instructions: ED Neuropathy, Peripheral, ED Pain, Acute, Uncertain Cause Prescriptions: New hydrocodone-acetaminophen [hydrocodone-acetaminophen] 5-325 mg tablet 1 tab PO Q4H PRN PRN (Reason: Pain) 2 Days Qty: 10 0RF naproxen 500 mg tablet 500 mg PO BID Qty: 14 0RF No Action oxycodone-acetaminophen [Percocet] 5-325 mg tablet 1 tab PO Q6H PRN (Reason: pain) 3 Days Qty: 12 0RF methocarbamol 500 mg tablet 1,000 mg PO 4X/DAY PRN PRN (Reason: Muscle pain/spasm) 7 Days Qty: 56 0RF ibuprofen 600 mg tablet 600 mg PO Q6H PRN PRN (Reason: fever or pain) Qty: 20 0RF cyclobenzaprine 10 mg tablet 10 mg PO TID PRN (Reason: muscle spasm) Qty: 20 0RF prednisone 20 mg tablet 60 mg PO DAILY Qty: 15 0RF tramadol 50 mg tablet 50 mg PO Q6H PRN (Reason: pain) 3 Days Qty: 10 0RF Primary Care Provider: Care Physician,No Primary Referrals: Faisal Steel DO [Med Staff - Active Staff] - 3-5 Days Care Physician,No Primary [Primary Care Provider] - Disposition Disposition: Home, Self Care
[2022-10-01 20:10] LABS: Absolute Lymphocyte Count 3.42 X10^3/uL (0.83-4.51); Absolute Neutrophil Count 6.1 X10^3/uL (2.0-7.7); Basophil# 0.05 X10^3/uL; Basophil% 0.5 % (0-1); Eosinophil# 0.13 X10^3/uL; Eosinophils% 1.2 % (0-5); Hematocrit 50.1 % (40-54); Hemoglobin 16.9 g/dL (13.0-16.5); Lymphocyte # 3.42 X10^3/ul (0.83-4.51); Lymphocyte % 32.5 % (19-41); Mean Corp Hgb Conc 33.7 g/dL (32-36); Mean Corpuscular Hgb 29.6 pg (27.0-32.0); Mean Corpuscular Volume 87.7 fL (80-94); Mean Platelet Vol. 9.6 fl (6.2-12.0); Monocyte# 0.77 X10^3/uL; Monocyte% 7.3 % (0-10); NRBC Flagged by Analyzer 0 % (0-5); Neutrophil # 6.11 X10^3/uL (2.7-7.7); Neutrophil % 58.2 % (47-70); Platelet Count 229 K/mm3 (150-450); RBC Distribution Width CV 13.4 % (11.6-14.6); RBC Distribution Width SD 43.2 fl (35.1-43.9); Red Blood Count 5.71 M/mm3 (4.6-6.2); White Blood Count 10.5 K/mm3 (4.4-11.0)
[2022-10-01 20:38] LABS: Anion Gap 6 (5-15); BUN 15 mg/dL (7-18); BUN/Creat Ratio 12.3 RATIO (10-20); Calcium,Total 9.2 mg/dL (8.5-10.1); Chloride 103 mmol/L (98-107); Creatinine, Serum 1.22 mg/dL (0.70-1.30); EST Glomerular Filtration Rate 70 mL/min (>60); Est Glom Filt Rate - Afr Amer 85 mL/min (>60); Estimated Creatinine Clearance 83.94 ml/min; Glucose 114 mg/dL (74-106); Potassium 3.8 mmol/L (3.5-5.1); Sodium Level 137 mmol/L (136-145); Troponin-I HS < 3 pg/mL (3.0-78.0)
[2022-10-01 20:43] VITALS: PULSE 84; RESP 13
[2022-10-01 20:48] LABS: D-Dimer Quantitative (DVT/PE) < 0.27 FEU/ug/m (0.27-0.49)
[2022-10-01 21:13] VITALS: BP 125/76; PULSE 62; RESP 15; O2SAT 98
== END 2022-10-01 21:16 | disposition home or self-care (01) ==
PROVIDERS: Emergency Provider Emergency Medicine; Visit Provider Emergency Medicine
DX: M79.602 Pain in left arm (principal); G62.9 Polyneuropathy, unspecified; F17.210 Nicotine dependence, cigarettes, uncomplicated
CPT/HCPCS: 80048; 84484; 85025; 85379; 93005; 99283; A4216

== ENCOUNTER 2024-04-30 15:14 | Emergency (ER) | payer MEDICAID, SELFPAY ==
[2024-04-30 15:15] VITALS: BP 121/78; PULSE 94; RESP 18; TEMP 35.5; O2SAT 96; BMI 36.6
--- NOTE | 2024-04-30 15:31 | EX.ED.VIS.EY ---
HPI History of Present Illness Chief Complaint: Eye Problem [facility] Medical History Smoker Home Medications ?Medication ?Instructions ?Recorded ?Last Taken ?Type methocarbamol 500 mg tablet 1,000 mg (2 x 500 mg) PO 4X/DAY 04/28/22 Unknown Rx PRN PRN Muscle pain/spasm 7 days #56 tabs oxycodone-acetaminophen 5 mg-325 1 tab PO Q6H PRN pain 3 days #12 04/28/22 Unknown Rx mg tablet (Percocet) tabs cyclobenzaprine 10 mg tablet 10 mg PO TID PRN muscle spasm #20 06/12/22 Unknown Rx tabs ibuprofen 600 mg tablet 600 mg PO Q6H PRN PRN fever or 06/12/22 Unknown Rx pain #20 tabs prednisone 20 mg tablet 60 mg (3 x 20 mg) PO DAILY #15 tabs 06/26/22 Unknown Rx tramadol 50 mg tablet 50 mg PO Q6H PRN pain 3 days #10 06/26/22 Unknown Rx tabs hydrocodone-acetaminophen 5-325mg 1 tab PO Q4H PRN PRN Pain 2 days 10/01/22 Unknown Rx 5mg-325mg #10 TABLETS naproxen 500 mg tablet 500 mg PO BID #14 tabs 10/01/22 Unknown Rx Allergy/AdvReac Type Severity Reaction Status Date / Time No Known Allergies Allergy Verified 04/30/24 15:15 Social History Smoking Status: Current every day smoker tobacco type: cigarettes EXAM Physical Exam Const Vital Signs: 04/30/24 15:15 Temperature 96 F L Temperature Source Temporal Pulse Rate 94 Respiratory Rate 18 Blood Pressure 121/78 H Blood Pressure Mean 92 Pulse Ox 96 Oxygen Delivery Method Room Air MDM MDM MDM Narrative Medical decision making narrative: HISTORY OF PRESENT ILLNESS: 39-year-old male presents with concern for right eye foreign body after weed eating. REVIEW OF SYSTEMS: Unable to obtain as patient eloped prior to my evaluation PHYSICAL EXAM: Nursing triage notes reviewed, Vital signs reviewed Unable to obtain additional physical exam as patient eloped prior to my evaluation MEDICAL DECISION MAKING: Chief Complaint: Eye pain concern for foreign body External records reviewed: Reviewed prior medications, prior imaging, prior ED encounters Factors affecting care: Hypertension, dehydration MDM Narrative: Unable to obtain as patient load prior to my evaluation Impression: 1. Eye pain 2. Eloped from the emergency department Dispo: Eloped the emergency department This note was generated with [employer] dictation software. It may contain incorrect words, spelling, and punctuation that were not noted in review of the chart prior to signing. Discharge Plan Triage Chief Complaint: Eye Problem ED Provider: Provider,Ed Physician Dx/Rx/DC Orders Prescriptions: No Action oxycodone-acetaminophen [Percocet] 5-325 mg tablet 1 tab PO Q6H PRN (Reason: pain) 3 Days Qty: 12 0RF methocarbamol 500 mg tablet 1,000 mg PO 4X/DAY PRN PRN (Reason: Muscle pain/spasm) 7 Days Qty: 56 0RF ibuprofen 600 mg tablet 600 mg PO Q6H PRN PRN (Reason: fever or pain) Qty: 20 0RF cyclobenzaprine 10 mg tablet 10 mg PO TID PRN (Reason: muscle spasm) Qty: 20 0RF prednisone 20 mg tablet 60 mg PO DAILY Qty: 15 0RF tramadol 50 mg tablet 50 mg PO Q6H PRN (Reason: pain) 3 Days Qty: 10 0RF hydrocodone-acetaminophen [hydrocodone-acetaminophen] 5-325 mg tablet 1 tab PO Q4H PRN PRN (Reason: Pain) 2 Days Qty: 10 0RF naproxen 500 mg tablet 500 mg PO BID Qty: 14 0RF Primary Care Provider: Care Physician,No Primary Referrals: Care Physician,No Primary [Primary Care Provider] - Print Language: Japanese Disposition Disposition: LEFT WITHOUT BEING SEEN Discharge Date/Time: 04/30/24 16:04
--- NOTE | 2024-04-30 16:00 | ED.RN ---
This RN went to check the patient in and get a PMH, yet the patient was not in the room. This RN checked bathrooms and did not find the patient. MD stated he went into the room twice and did not see the patient.
== END 2024-04-30 16:04 | disposition left against medical advice (07) ==
LOC: ED 16:04
DX: H57.11 Ocular pain, right eye (principal); F17.210 Nicotine dependence, cigarettes, uncomplicated; E86.0 Dehydration; I10 Essential (primary) hypertension; Z53.21 Procedure and treatment not carried out due to patient leaving prior to being seen by health care provider